=== PATIENT | female | born 1970 | race Caucasian/White ===

== ENCOUNTER 2024-02-10 20:26 | Outpatient (REF) | payer BC, SELFPAY ==
[2024-02-15 13:12] LABS: Age Gdln ACOG Testing Note (.); HPV Aptima Negative (Negative); IGP, Aptima HPV, rfx 16/18,45 Note (.)
== END 2024-02-10 20:27 | disposition home or self-care (01) ==
LOC: LAB 20:26
PROVIDERS: Visit Provider Obstetrics & Gynecology
DX: Z01.419 Encounter for gynecological examination (general) (routine) without abnormal findings (principal)
CPT/HCPCS: 87624; G0145

== ENCOUNTER 2024-02-23 07:56 | Outpatient (OUT) | payer BC, SELFPAY ==
--- NOTE | 2024-02-23 07:59 | XR_ITS ---
The [address] [address] Patient Name: BRIAN HOLLIS MRN: [id number] date: 1970 Sex: F Assigned Patient Location: RAD Current Patient Location: RAD Accession/Order Number: [id number] Exam Date: 02/23/2024 08:03 Report Date: 02/23/2024 10:14 At the request of: JELANI ATKINS Procedure: XR DEXA axial skeleton EXAMINATION: XR DEXA axial skeleton HISTORY: postmenopausal state Z78.0 COMPARISON: No relevant comparison available. TECHNIQUE: Dual-energy X-ray absorptiometry (DXA) was performed. FINDINGS: SPINE ANALYSIS: Average bone mineral density is 1.437 g/cm2. T-score (standard deviation relative to young adult mean): 2.0 . HIP ANALYSIS: Lowest bone mineral density is within the left femoral neck, 1.033 g/cm2. T-score (standard deviation relative to young adult mean): 0.0 . XR/XR DEXA axial skeleton IMPRESSION: [employer] Classification: Normal - Low Fracture Risk Electronically authenticated by: RICKIE OREILLY Date: 02/23/2024 10:14
== END 2024-02-23 07:57 | disposition home or self-care (01) ==
LOC: RAD 07:57
PROVIDERS: Visit Provider Obstetrics & Gynecology
DX: Z78.0 Asymptomatic menopausal state (principal)
CPT/HCPCS: 77080

== ENCOUNTER 2024-07-18 17:04 | Emergency (ER) | payer BC, SELFPAY ==
[2024-07-18] VITALS (11 sets, daily range): BP systolic 125–159; BP diastolic 73–99; PULSE 76–92; TEMP 37.1; O2SAT 97–100; BMI 32.3
--- NOTE | 2024-07-18 17:24 | ECG_ITS ---
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
--- NOTE | 2024-07-18 17:24 | CT_ITS ---
The [address] [address] Patient Name: BRIAN HOLLIS MRN: [id number] date: 1970 Sex: F Assigned Patient Location: ER Current Patient Location: ER Accession/Order Number: [id number] Exam Date: 07/18/2024 17:40 Report Date: 07/18/2024 18:43 At the request of: YON SHORT Procedure: CT head/brain wo con EXAMINATION: CT head/brain wo con, 07/18/2024 2:40 PM PDT HISTORY: vision changes COMPARISON: None. TECHNIQUE: CT scan of the head was performed without IV contrast. CT dose reduction technique was used, including Automated Exposure Control. FINDINGS: BRAIN PARENCHYMA/CSF SPACES: Ventricles are normal in size for age. There is no hemorrhage, mass effect or midline shift. Partially empty sella. PARANASAL SINUSES: Clear. SKULL BASE AND CALVARIUM: Normal. EXTRACRANIAL SOFT TISSUES: Normal. CT/CT head/brain wo con IMPRESSION: 1. No acute intracranial abnormality. 2. Partially empty sella. Electronically authenticated by: RICKIE VERGARA Date: 07/18/2024 18:43
--- NOTE | 2024-07-18 17:30 | ED_ITS ---
HPI HPI - General Adult General Chief complaint: Eye Problems Stated complaint: Headache Eye Time Seen by Provider: 07/18/24 17:16 Source: patient Mode of arrival: walk-in Limitations: no limitations History of Present Illness HPI narrative: Patient presents ED complaining of vision changes in the right eye. She states she was at work just finishing up when she felt like there was a spot missing from her vision out of the right eye. She said she also became dizzy when this happened. She does report a history of migraines although it has been about 5 or 10 years since she has had a migraine but she did have tunnel vision changes when she had a migraine in the past. No nausea no vomiting. No trauma. No syncope. Patient is not diabetic and she is not on a blood thinner. No trauma to the eye. She denies a headache at this time. Patient states she had an eye doctor appointment about 2 months ago and everything had checked out fine at that time. She reports that her vision is better than it was but she still has a small missing piece when she looks out of her right eye. No pain, no pain with movement of the eye. No other strokelike symptoms, no confusion no speech diffi culties no weakness. Related Data Home Medications ?Medication ?Instructions ?Recorded ?Confirmed No Known Home Medications 07/18/24 07/18/24 Allergies Allergy/AdvReac Type Severity Reaction Status Date / Time No Known Drug Allergies Allergy Verified 07/18/24 17:16 Opioid HPI Opioid Management Most Recent Opioid Data: Last Pain Scale 0 07/18/24 18:11 Last MAR Pain Assessment 07/18/24 18:11 Review of Systems ROS Status of ROS 10 or more systems reviewed and unremark able except as noted in history and below Exam Narrative Exam Narrative: Time Seen: [] Vital Signs: [Per nurse's notes.] General: [Alert] Skin: [Warm, dry, no rash.] Head: [Normocephalic, atraumatic.] Neck: [Supple, trachea midline.] Eye: [Pupils are equal, round and reactive to light, extraocular movements are intact, normal conjunctiva. Funduscopic exam normal bilaterally Ears, nose, mouth and throat: oral mucosa moist. Cardiovascular: [Regular rate and rhythm, no murmur.] Respiratory: [Lungs are clear to auscultation, respirations are non-labored, breath sounds are equal.] Chest wall: [No tenderness, no deformity.] Gastrointestinal: [Soft, nontender, non distended, normal bowel sounds.] MSK: 5 out of 5 muscle strength x 4 extremities no calf pain or edema Lymphatics: [No lymphadenopathy.] Psychiatric: [Cooperative, appropriate mood & affect.] Neurological: [Alert and oriented to person, place, time, and situation, no focal neurological deficit observed.] Constitutional Vital Signs, click to edit/add: Last Vital Signs Temp 98.8 F 07/18/24 17:17 Pulse 86 07/18/24 17:17 Resp 18 07/18/24 17:17 BP 159/96 H 07/18/24 17:17 Pulse Ox 100 07/18/24 17:17 O2 Del Method Room Air 07/18/24 17:17 Course Vital Signs Vital signs: Vital Signs Temperature 98.8 F 07/18/24 17:17 Pulse Rate 86 07/18/24 17:17 Respiratory Rate 18 07/18/24 17:17 Blood Pressure 159/96 H 07/18/24 17:17 Pulse Oximetry 100 07/18/24 17:17 Oxygen Delivery Method Room Air 07/18/24 17:17 Temperature 98.8 F 07/18/24 17:17 Pulse Rate 86 07/18/24 17:17 Respiratory Rate 18 07/18/24 17:17 Blood Pressure 159/96 H 07/18/24 17:17 Pulse Oximetry 100 07/18/24 17:17 Oxygen Delivery Method Room Air 07/18/24 17:17 Medical Decision Making MDM Narrative Medical decision making narrative: Patient's labs and CT scan are negative for acute findings. Her vision she said is still may be slightly blurry but much better. Possibly a migraine variant versus floaters. Please Follow-up with ophthalmology and neurology. Return to ED if worsening symptoms. Differential Diagnosis Differential Diagnosis: Migraine, floaters, hypertension, electrolyte abnormality Lab Data Lab results reviewed: Yes I reviewed the patient's lab results Labs: Lab Results 07/18/24 Range/Units 17:37 WBC 8.6 (4.0-11.0) 10^3/uL RBC 4.73 (4.20-5.40) 10^6/uL Hgb 14.0 (12.0-16.0) g/dL Hct 41.2 (36.0-48.0) % MCV 87.1 (81.0-99.0) fL MCH 29.6 (26.7-34.0) pg MCHC 34.0 (29.9-35.2) g/dL RDW 12.8 (11.0-15.0) % Plt Count 347 (150-450) 10^3/uL MPV 10.6 (9.5-13.5) fL Neut % (Auto) 57.9 (43.0-75.0) % Lymph % (Auto) 29.9 (20.5-60.0) % [place] % (Auto) 9.3 (1.7-12.0) % Eos % (Auto) 2.0 (0.9-7.0) % Baso % (Auto) 0.7 (0.2-2.0) % Neut # (Auto) 5.0 (1.4-6.5) 10^3/uL Lymph # (Auto) 2.6 (1.2-3.8) 10^3/uL [place] # (Auto) 0.8 (0.3-0.8) 10^3/uL Eos # (Auto) 0.2 (0.0-0.7) 10^3/uL Baso # (Auto) 0.1 (0.0-0.1) 10^3/uL Abs Immat Gran (auto) 0.02 (0.00-0.03) 10^3/uL Imm/Tot Granulo (auto) 0.2 (0.0-0.5) % Sodium 138 (136-145) mmol/L Potassium 3.6 (3.5-5.1) mmol/L Chloride 100 (98-107) mmol/L Carbon Dioxide 25.1 (21.0-32.0) mmol/L Anion Gap 16.5 BUN 13.0 (7.0-18.0) mg/dL Creatinine 0.85 (0.55-1.02) mg/dL Est GFR ( Amer) >60 (>=60) Est GFR (Non-Af Amer) >60 (>=60) BUN/Creatinine Ratio 15.3 Glucose 85 (74-106) mg/dL Calcium 9.1 (8.5-10.1) mg/dL Total Bilirubin 0.3 (0.2-1.0) mg/dL AST 45 H (15-37) U/L ALT 82 H (14-59) U/L Alkaline Phosphatase 64 (46-116) U/L Total Protein 7.6 (6.4-8.2) g/dL Albumin 4.2 (3.4-5.0) g/dL Globulin 3.4 g/dL Albumin/Globulin Ratio 1.[address] scan - head: Radiologist's impression: ITS Impressions Head CT 07/18/24 17:24 IMPRESSION: 1. No acute intracranial abnormality. 2. Partially empty sella. Electronically authenticated by: RICKIE VERGARA Date: 07/18/2024 18:43 ECG Data Attestation: I personally reviewed and interpreted this ECG as follows: Interpretation: EKG INTERPRETATION Time: []1732 Rate: []80 Rhythm: _ []Normal sinus rhythm ST segments: _ []No acute ST elevation or depression T waves: _ [] Ectopy: _ [] P wave/DE interval: _ [] QRS interval: _ [] QT interval: _ [] Comparison: _ [] Comparison EKG date: [] Performed by: [self] Discharge Plan Discharge Stand Alone Forms: Work/School Release, Portal Instructions Chief Complaint: Eye Problems Clinical Impression: Floaters in visual field Patient Disposition: Home, Self-Care Time of Disposition Decision: 18:47 Mode of Transportation: Private Vehicle Prescriptions / Home Meds: No Action No Known Home Medications Print Language: Vietnamese Instructions: Eye (Visual) Floaters (ED) Referrals: DEYVI CABELLO [Primary Care Provider] - 1 week Maximiliano Truong MD [Physician] - 1 week FABIEN MCGINNIS [Physician] - 1 week ARMEN FORD [Physician] - 1 week
[2024-07-18 17:45] LABS: Basophils Absolute Auto 0.1 10^3/uL (0.0-0.1); Basophils Percent Auto 0.7 % (0.2-2.0); Eosinophils Absolute Auto 0.2 10^3/uL (0.0-0.7); Hematocrit 41.2 % (36.0-48.0); Immature Granulocytes Abs Auto 0.02 10^3/uL (0.00-0.03); Immature Granulocytes Pct Auto 0.2 % (0.0-0.5); Lymphocytes Absolute Auto 2.6 10^3/uL (1.2-3.8); Lymphocytes Percent Auto 29.9 % (20.5-60.0); Mean Corpuscular Hemoglobin 29.6 pg (26.7-34.0); Mean Corpuscular Volume 87.1 fL (81.0-99.0); Mean Platelet Volume 10.6 fL (9.5-13.5); Monocytes Absolute Auto 0.8 10^3/uL (0.3-0.8); Monocytes Percent Auto 9.3 % (1.7-12.0); Neutrophils Percent Auto 57.9 % (43.0-75.0); Platelet Count 347 10^3/uL (150-450); Red Blood Count 4.73 10^6/uL (4.20-5.40); Red Cell Distribution Width 12.8 % (11.0-15.0); White Blood Count 8.6 10^3/uL (4.0-11.0)
[2024-07-18 17:59] LABS: Alanine Aminotransferase 82 U/L (14-59); Albumin Globulin Ratio 1.2; Albumin Level 4.2 g/dL (3.4-5.0); Alkaline Phosphatase 64 U/L (46-116); Anion Gap 16.5; Aspartate Amino Transferase 45 U/L (15-37); BUN Creatinine Ratio 15.3; Bilirubin Total 0.3 mg/dL (0.2-1.0); Calcium 9.1 mg/dL (8.5-10.1); Carbon Dioxide 25.1 mmol/L (21.0-32.0); Chloride 100 mmol/L (98-107); Estimated GFR (African America >60 (>=60); Estimated GFR (Non-African Ame >60 (>=60); Globulin 3.4 g/dL; Glucose 85 mg/dL (74-106); Potassium 3.6 mmol/L (3.5-5.1); Sodium 138 mmol/L (136-145); Total Protein 7.6 g/dL (6.4-8.2)
[2024-07-18] MEDS: 0.9 % SODIUM CHLORIDE 1,000 ML 1000 ML IV (18:10)
[2024-07-18] MEDS: METOCLOPRAMIDE HCL 10 MG/2 ML VIAL 5 MG IVP (18:11)
[2024-07-18] MEDS: KETOROLAC TROMETHAMINE 30 MG/ML VIAL 15 MG IVP (18:11)
[2024-07-18] MEDS: DIPHENHYDRAMINE HCL 50 MG/ML VIAL 25 MG IV (18:11)
== END 2024-07-18 19:10 | disposition home or self-care (01) ==
PROVIDERS: Emergency Provider Emergency Medicine; PCP Family Medicine
DX: H43.391 Other vitreous opacities, right eye (principal)
CPT/HCPCS: 36415; 70450; 80053; 85025; 93005; 96361; 96374; 96375; 99285; J1200; J1885; J2765

== ENCOUNTER 2024-12-05 16:40 | Outpatient (OUT) | payer BC, SELFPAY ==
[2024-12-05 16:55] LABS: Bilirubin Urine NEGATIVE (NEGATIVE); Blood Urine NEGATIVE (NEGATIVE); Clarity Urine CLEAR (CLEAR); Color Urine YELLOW (YELLOW); Glucose Urine UA NEGATIVE (NEGATIVE); Ketones Urine NEGATIVE (NEGATIVE); Leukocyte Esterase Urine NEGATIVE (NEGATIVE); Nitrite Urine NEGATIVE (NEGATIVE); Protein Urine NEGATIVE (NEG/TRACE); Specific Gravity Urine 1.025 (1.005-1.025); Urobilinogen Urine 0.2 EU/dL (0.2-1.0)
--- OUTSIDE RECORDS SUMMARY | 2024-12-05 16:57 | XMS_ITS | CCD ---
Author Organization [facility] Care Team Providers Care Internal Communications Intern Name Role Phone Deyvi Cabello Primary Care Provider MD Roney Mcmanus Attending Provider [phone] DO Deyvi Cabello Primary Care Provider Self, Referral Attending Provider Unavailable WILBERT ., DR PALOMARES Admitting Unavailable WILBERT ., DR PALOMARES Consulting Unavailable WILBERT ., DR PALOMARES Attending Unavailable WILBERT ., DR PALOMARES Admitting Unavailable WILBERT ., DR PALOMARES Consulting Unavailable WILBERT ., DR PALOMARES Attending Unavailable WILBERT ., DR PALOMARES Admitting Unavailable WILBERT ., DR PALOMARES Consulting Unavailable WILBERT ., DR PALOMARES Attending Unavailable ZIEBER, DR RICKIE Burnham Consulting Unavailable WILBERT ., DR PALOMARES Admitting Unavailable WILBERT ., DR PALOMARES Consulting Unavailable WILBERT ., DR PALOMARES Attending Unavailable HELENA MARC Consulting Unavailable FERCHO II, FILI Consulting Unavailable MARIBELL DUARTE Consulting Unavailable MD Roney Mcmanus Attending Provider DO Deyvi Cabello Primary Care Provider MD Laci Larsen Attending Provider JELANI JAIN Attending Unavailable DO Deyvi Cabello Primary Care Provider Jelani Jain Attending Provider Jelani Jain Referring Provider [phone] DO Deyvi Cabello Primary Care Provider MD Laci Larsen Attending Provider [phone] Laci Larsen Admitting Unavailable Laci Larsen Attending Unavailable Deyvi Cabello Primary Care Unavailable Laci Larsen Admitting Unavailable Laci Larsen Attending Unavailable Deyvi Cabello Primary Care Unavailable Deyvi Cabello Primary Care Unavailable Jelani Jain Admitting Unavailable Jelani Jain Attending Unavailable Jelani Jain Referring Unavailable Laci Larsen Admitting Unavailable Laci Larsen Attending Unavailable Deyvi Cabello Primary Care Unavailable Deyvi Cabello DO Primary Care Provider FILI SANDERS Referring Unavailable DEYVI CABELLO Primary Care Unavailable DEYVI CABELLO Primary Care Unavailable FILI SANDERS Referring Unavailable Allergies Allergy Classification Reported Allergen(s) Allergy Type Date of Onset Reaction(s) Facility (1 source) Dextroamphetamine Drug Allergy [facility] (1 source) rosuvastatin Drug Allergy [facility] Medications Current Medications Medication Drug Class(es) Dates Sig (Normalized) Sig (Original) acetaminophen 325 mg oral tablet (8 sources) Start: 05-20-2021 acetaminophen (TYLENOL) tablet 650 mg take 2 tablets by [facility] every six hours as needed for pain acetaminophen (TYLENOL) 325 MG tablet Ta ke 650 mg by mouth every 6 hours as needed for Pain Active acetaminophen 325 mg / HYDROcodone bitartrate 5 mg oral tablet (5 sources) Opioid Agonist Start: 05-20-2021 End: 05-20-2021 HYDROcodone-acetaminophen (NORCO) 5-325 MG per tablet 1 tablet Start: 02-26-2018 End: 03-02-2019 Hydrocodone-Acetaminophen (N orco) 5-325 mg tablet Discontinued 1 TAB PO every 6 to 8 hours February 26, 2018 March 02, 2019 1:29pm calcium chloride 0.0014 meq/ml / potassium chloride 0.004 meq/ml / sodium chloride 0.103 meq/ml / sodium lactate 0.028 meq/ml injectable solution (2 sources) Start: 05-20-2021 lactated ringe rs infusion Cholecalciferol (2 sources) Vitamin D Cholecalciferol (VITAMIN D-3 PO) Take by mouth daily Active Cholecalciferol (VITAMIN D-3 PO) Take by mouth daily 0 Active 2 ml fentaNYL 0.05 mg/ml injection (1 source) Opioid Agonist Start: 05-20-2021 fentaNYL (SUBLIMAZE) injection 50 mcg ferrous sulfate 325 mg oral tablet (4 sources) Start: 03-02-2019 take 325 mg by mouth once daily Ferrous Sulfate Active 325 MG PO Daily March 02, 2019 12:00am 2 ml metoclopramide 5 mg/ml prefilled syringe (1 source) Dopamine-2 Receptor Antagonist Start: 05-20-2021 End: 05-20-2021 metoclopramide (REGLAN) injection 10 mg Multiple Vitamins-Minerals (VITAMIN D3 COMPLETE PO) (3 sources) Multiple Vitamins-Minerals (VITAMIN D3 COMPLETE PO) Take by mouth daily 0 Active Multiple Vitamin s-Minerals (VITAMIN D3 COMPLETE PO) Take by mouth daily 0 Suspended Probiotic Product (PROBIOTIC -10 PO) (2 sources) Probiotic Produc t (PROBIOTIC-10 PO) Take by mouth daily Active Probiotic Produc t (PROBIOTIC-10 PO) Take by mouth daily 0 Active 1 ml promethazine hydrochloride 25 mg/ml injection (1 source) Phenothiazine Start: 05-20-2021 End: 05-20-2021 promethazine (PHENERGAN) injection 6.25 mg 3 ml sodium chloride 9 mg/ml injection (3 sources) Start: 05-20-2021 sodium chlorid e flush 0.9 % injection 5-40 mL Start: 05-20-2021 0.9 % sodium c hloride infusion Start: 05-20-2021 sodium chlorid e flush 0.9 % injection 5-40 mL tamsulosin hydrochloride 0.4 mg oral capsule (5 sources) alpha-Adrenergic Sima Start: 04-10-2021 tamsulosin (FLOMAX) 0.4 MG capsule vitamin e 180 mg oral capsule (2 sources) take 1 capsule by mouth once daily vitamin E 400 UNIT capsule Take 400 Units by mouth daily Active take 1 capsule by mouth once michael ly vitamin E 400 UNIT capsule Take 400 Units by mouth daily 0 Active Completed/Discontinued Medications Medication Drug Class(es) Dates Sig (Normalized) Sig (Original) 200 ml ciprofloxacin 2 mg/ml injection (1 source) Quinolone Antimicrobial Start: 05-20-2021 End: 05-20-2021 ciprofloxacin (CIPRO) IVPB 400 mg dimenhyDRINATE 50 mg oral tablet (1 source) Start: 05-20-2021 End: 05-20-2021 dimenhyDRINATE (DRAMAMINE) tablet 50 mg ibuprofen 800 mg oral tablet (9 sources) Nonsteroidal Anti-inflammatory Drug Start: 02-26-2018 End: 03-02-2019 Ibuprofen Discontinued 800 MG PO every 6 to 8 hours 30 February 26, 2018 12:00am March 02, 2019 1:29pm take 1 tablet by bc th every six hours as needed for pain ibuprofen (ADVIL;MOTRIN) 200 MG tablet T mono 200 mg by mouth every 6 hours as needed for Pain 0 Active iopamidol (ISOVUE-370) 76 % injection 120 mL (1 source) Start: 05-01-2021 End: 05-01-2021 iopamidol (ISOVUE-370) 76 % injection 120 mL rosuvastatin calcium 10 mg oral tablet (4 sources) HMG-CoA Reductase Inhibitor Start: 02-26-2018 End: 03-02-2019 take 10 mg by mouth once daily Rosuvastatin Discontinued 10 MG PO Daily February 26, 2018 12:00am March 02, 2019 1:29pm Problems Active Problems Problem Classification Problem Date Documented Da te Episodic/Chronic Calculus of urinary tract (13 sources) Kidney stone; Translations: [Calculus of kidney] Onset: 04-25-2021 04-25-2021 Episodic Disorders of lipid metabolism (1 source) Hyperlipidemia, unspecified; Translations: [HYPERLIPIDEMIA UNSPECIFIED] Onset: 01-21-2023 Chronic Fracture of lower limb (4 sources) Closed fracture of phalanx of foot; Translations: [Displaced unspecified fracture of left lesser toe(s), initial encounter for closed fracture] 02-26-2018 Episodic Gastrointestinal hemorrhage (4 sources) Rectal hemorrhage; Translations: [Hemorrhage of anus and rectum] 03-07-2019 Episodic Menstrual disorders (2 sources) Excessive and frequent menstruation with regular cycle; Translations: [Dysmenorrhea, unspecified] Onset: 01-21-2023 Chronic Other female genital disorders (1 source) Abnormal uterine and vaginal bleeding, unspecified; Translations: [ABNORMAL UTERINE VAGINAL BLEED UNS] Onset: 01-21-2023 Chronic Other hematologic conditions (1 source) Elevated erythrocyte sedimentation rate; Translations: [Elevated erythrocyte sedimentation rate] Onset: 08-24-2024 Episodic Other screening for suspected conditions (not mental disorders or infectious disease) (5 sources) Abnormal findings on diagnostic imaging of other specified body structures; Translations: [ABNORML FIND DX IMG OTH BODY STRUC] Onset: 12-25-2022 Chronic Unclassified (1 source) Pain in right hand; Translations: [Pain in right hand] Onset: 11-05-2023 Past or Other Problems Problem Classification Problem Date Documented Da te Episodic/Chronic Abdominal pain (1 source) Pelvic and perineal pain; Translations: [PELVIC AND PERINEAL PAIN] Onset: 01-21-2023 Episodic Genitourinary symptoms and ill-defined conditions (9 sources) Farhan hematuria; Translations: [Gross hematuria] Onset: 04-25-2021 Episodic Other circulatory disease (1 source) Bleeding; Translations: [Hemorrhage, not elsewhere classified] Onset: 12-06-2014 12-06-2014 Episodic Other female genital disorders (5 sources) Hypertrophy of uterus; Translations: [HYPERTROPHY OF UTERUS] Onset: 2022 Episodic Other non-traumatic joint disorders (1 source) Pain in unspecified joint; Translations: [Pain in unspecified joint] Onset: 10-28-2023 Episodic Other screening for suspected conditions (not mental disorders or infectious disease) (1 source) Encounter for screening mammogram for malignant neoplasm of breast; Translations: [Encounter for screening mammogram for malignant neoplasm of breast] Onset: 04-07-2024 Episodic Results Test Name Value Interpretation Reference Range Facility XR ABDOMEN (KUB) (SINGLE AP VIEW)on 09-04-2024 XR ABDOMEN (KUB) (SINGLE AP VIEW) EXAMINATION: ONE SUPINE XRAY VIEW(S) OF THE ABDOMEN 08/31/2024 2:45 pm COMPARISON: 08/20/2023 HISTORY: ORDERING SYSTEM PROVIDED HISTORY: Renal stone FINDINGS: Bowel gas pattern and bony structures are unremarkable. There is a stable 6 mm left upper quadrant calcification consistent with a renal calculus. IMPRESSION: Stable left nephrolithiasis. Interpreted by: Taz Macias MD Signed by: Taz Macias MD 09/04/24 Final result Normal [facility] C reactive protein [Mass/vol ume] in Serum or PlasmaOrdered By: Laci Larsen on 08-24-2024 CRP [Mass/Vol] 0.7 mg/dL High 0.0-0.5 [facility] C-Reactive Proteinon 024 C-Reactive Protein 0.7 mg/dL High 0.0-0.5 [facility] Comment on above: Result Comment: PERF ORMED BY: [place] [address] PATHOLOGIST SNAP SHEARER REID HOGUE M.D. Performed By: #### A NA, C4, CH50, C3 #### [facility] , #### CMP, CRP, ESR, CBC, ADDONUAPLUS, PTH, CK #### [facility] [address] [place] [address] Erythrocyte Sedimentation Ra juan carlos 08-24-2024 ESR (Bld) [Velocity] 12 mm/h Normal 0-29 [facility] Comment on above: Result Comment: PERF ORMED BY: [place] [address] PATHOLOGIST SNAP SHEARER REID HOGUE M.D. Performed By: #### A NA, C4, CH50, C3 #### [facility] , #### CMP, CRP, ESR, CBC, ADDONUAPLUS, PTH, CK #### [address] Erythrocyte sedimentation ra te by Photometric methodOrdered By: Laci Larsen on 08-24-2024 ESR Photometric method (Bld) [Velocity] 12 mm/hr 0-29 [facility] MM screening mammo BI w/CADo n 04-07-2024 MM screening mammo BI w/CAD [facility] [place] [address] Mammography Report Signed Patient: Lilly Morocho MR#: [id number] 46 : 1970 Acct:[id number] Age/Sex: 53 / F ADM Date: 04/07/24 Loc: [place] Room: Type: [facility] Attending Dr: Jelani Jain Copies to: Jelani Cabello DO Ordering Provider: Jelani Jain Date of Service: 04/07/24 MM/MM screening mammo BI w/CAD: SCREENING CLINICAL DATA: Screening for malignancy. SCREENING MAMMOGRAM - FULL FIELD DIGITAL WITH TOMOSYNTHESIS AND CAD COMPARISON:Mammogram s dating back to 2020 Tomosynthesis craniocaudal and mediolateral oblique views of both breasts were obtained using low- dose digital technique. This examination was reviewed with the aid of CAD. FINDINGS: The breast tissue is composed of scattered fibroglandular densities. There are no dominant masses, typically malignant calcifications or architectural distortion. There has been no significant interval change. MM/MM screening mammo BI w/CAD IMPRESSION: NO MAMMOGRAPHIC EVIDENCE OF MALIGNANCY. ROUTINE FOLLOW-UP IS RECOMMENDED IN ONE YEAR. RESULT CODE: 1 Negative DENSITY CODE: 2 (approximately 25-50% glandular) FOLLOW UP: 1YR The false-negative rate of mammography is approximately 10-percent. Management of a palpable abnormality must be based on clinical grounds. Patient was entered into a reminder system with a target due date for the next mammogram. Impression dictated by: Javi Sandhu Jr., D.O.04/07/2024 2:50 PM Dictation Location: [facility] Transcribed By: [facility] 04/07/24 1450 Dictated By: Javi Sandhu Jr, DO 04/07/24 1449 Signed By: 04/07/24 1450 Normal [facility] XR knee BI 2Von 11-05-2023 XR knee BI 2V [facility] [place] [address] XRay Report Signed Patient: Lilly Morocho MR#: [id number] 47 : 1970 Acct:[id number] Age/Sex: 53 / F ADM Date: 11/05/23 Loc: XD Room: Type: [facility] Attending Dr: Laci Larsen MD Copies to: Laci Larsen MD Ordering Provider: Laci Larsen MD Date of Service: 11/05/23 XR/XR hand BI 2V: HAND PAIN ([id number]) XR/XR knee BI 2V: KNEE PAIN ([id number]) XR/XR ankle RT 2V: ANKLE PAIN BILATERAL HAND - 2 views each bilateral knee series 2 views each, right ankle 2 views REASON FOR EXAM: Bilateral hand pain, generalized right ankle pain, bilateral knee pain. COMPARISON: None FINDINGS: Right hand: No focal soft tissue abnormality or acute bony process. Carpus demonstrates minimal degenerative change. MCP joints appear unremarkable. IP joints appear unremarkable. Left hand: No focal soft tissue abnormality or acute bony process. Carpus, MCP joints and IP joints appear unremarkable. No bony erosions. Right ankle: No focal soft tissue abnormality. Ankle mortise appears intact without acute bony process. No significant degenerative change. Right knee: No knee joint effusion or acute bony process. Minimal degenerative change. Joint spaces appear maintained. Left knee: No knee joint effusion. No acute bony process. Minimal degenerative change. No significant joint space narrowing. XR/XR hand BI 2V IMPRESSION: MINIMAL DEGENERATIVE CHANGES OF THE RIGHT HAND WITHOUT ACUTE BONY PROCESS. LEFT HAND APPEARS UNREMARKABLE. RIGHT ANKLE DEMONSTRATES NO ACUTE BONY PROCESS OR SIGNIFICANT DEGENERATIVE CHANGE. THE KNEES DEMONSTRATE MINIMAL DEGENERATIVE CHANGES OF THE BONY PROCESS. Impression dictated by: Javi Sandhu Jr., EjORosa11/05/2023 2:42 PM Dictation Location: [place] [address] Transcribed By: [facility] 11/05/23 1442 Dictated By: Javi Sandhu Jr, DO 11/05/23 1439 Signed By: 11/05/23 1442 Normal [facility] SHARONA Antinuclear Antibodieson 10-28-2023 Antinuclear Abs, IFA Negative Normal . [facility] Comment on above: Result Comment: Nega tive <1:80 Borderline 1:80 Positive >1:80 ICAP nomenclature: AC-0 For more information about Hep-2 cell patterns use ANApatterns.org, the official website for the International Consensus on Antinuclear Antibody (SHARONA) Patterns (ICAP). Performed at: - [facility] [address] [id number] Engineer Second Assistant: Hudson Bella PhD, Phone: [phone] Performed By: #### A NA, C4, CH50, C3 #### [facility] , #### CMP, CRP, ESR, CBC, ADDONUAPLUS, PTH, CK #### [address] Alanine aminotransferase [En zymatic activity/volume] in Serum or PlasmaOrdered By: Laci Larsen on 10-28-2023 ALT [Catalytic activity/Vol] 23 U/L Normal 7-52 [facility] Comment on above: Performed By: #### A NA, C4, CH50, C3 #### [facility] , #### CMP, CRP, ESR, CBC, ADDONUAPLUS, PTH, CK #### [facility] [address] [place] [address] [place] Albumin [Mass/volume] in Ser um or Plasma by Bromocresol green (BCG) dye binding methoOrdered By: Laci Larsne on 10-28-2023 Albumin BCG dye [Mass/Vol] 4.8 g/dL 3.5-5.7 [facility] Alkaline phosphatase [Enzyma tic activity/volume] in Serum or PlasmaOrdered By: Laci Larsen on 10-28-2023 ALP [Catalytic activity/Vol] 63 U/L Normal 34-104 [facility] Comment on above: Performed By: #### A NA, C4, CH50, C3 #### [facility] , #### CMP, CRP, ESR, CBC, ADDONUAPLUS, PTH, CK #### [facility] [address] Aspartate aminotransferase [ Enzymatic activity/volume] in Serum or PlasmaOrdered By: Laci Larsen on 10-28-2023 AST [Catalytic activity/Vol] 17 U/L Normal 13-39 [facility] Comment on above: Performed By: #### A NA, C4, CH50, C3 #### [facility] , #### CMP, CRP, ESR, CBC, ADDONUAPLUS, PTH, CK #### [facility] [address] [place] [address] [place] Automated basophil %Ordered By: Laci Larsen on 10-28-2023 Basophils/100 WBC (Bld) 0.9 % Normal . [facility] Comment on above: Performed By: #### A NA, C4, CH50, C3 #### [facility] , #### CMP, CRP, ESR, CBC, ADDONUAPLUS, PTH, CK #### [address] Automated basophil countOrde red By: Laci Larsen on 10-28-2023 Basophils (Bld) [#/Vol] 0.1 10*3/uL Normal 0.0-0.2 [facility] Comment on above: Performed By: #### A NA, C4, CH50, C3 #### [facility] , #### CMP, CRP, ESR, CBC, ADDONUAPLUS, PTH, CK #### [address] Automated blood monocyte cou ntOrdered By: Laci Larsen on 10-28-2023 Monocytes (Bld) [#/Vol] 0.5 10*3/uL Normal 0.0-0.8 [facility] Comment on above: Performed By: #### A NA, C4, CH50, C3 #### [facility] , #### CMP, CRP, ESR, CBC, ADDONUAPLUS, PTH, CK #### [address] Automated eosinophil %Ordere d By: Laci Larsen on 10-28-2023 Eosinophils/100 WBC (Bld) 2.5 % Normal . [facility] Comment on above: Performed By: #### A NA, C4, CH50, C3 #### [facility] , #### CMP, CRP, ESR, CBC, ADDONUAPLUS, PTH, CK #### [address] Automated eosinophil countOr dered By: Laci Larsen on 10-28-2023 Eosinophils (Bld) [#/Vol] 0.2 10*3/uL Normal 0.0-0.45 [facility] Comment on above: Performed By: #### A NA, C4, CH50, C3 #### [facility] , #### CMP, CRP, ESR, CBC, ADDONUAPLUS, PTH, CK #### [address] Automated erythrocytes count in urine sediment (number/area)Ordered By: Laci Larsen on 10-28-2023 RBC Auto (Urine sed) [#/Area] 1-2 [HPF] 0-4 [facility] Automated leukocytes count i n urine sediment (number/area)Ordered By: Laci Larsen on 10-28-2023 WBC Auto (Urine sed) [#/Area] 0-1 [HPF] 0-4 [facility] Automated monocyte %Ordered By: Lcai Larsen on 10-28-2023 Monocytes/100 WBC (Bld) 6.6 % Normal . [facility] Comment on above: Performed By: #### A NA, C4, CH50, C3 #### [facility] , #### CMP, CRP, ESR, CBC, ADDONUAPLUS, PTH, CK #### [address] Automated neutrophil %Ordere d By: Laci Larsen on 10-28-2023 Neutrophils/100 WBC (Bld) 58.6 % Normal . [facility] Comment on above: Performed By: #### A NA, C4, CH50, C3 #### [facility] , #### CMP, CRP, ESR, CBC, ADDONUAPLUS, PTH, CK #### [address] Automated urine color determ inationOrdered By: Laci Larsen on 10-28-2023 Color (U) Yellow Normal Yellow [facility] Comment on above: Order Comment: Name Collection Type:: Clean-Voided Midstream Performed By: #### A NA, C4, CH50, C3 #### [facility] , #### CMP, CRP, ESR, CBC, ADDONUAPLUS, PTH, CK #### [address] Bilirubin Test strip Ql (U)O rdered By: Laci Larsen on 10-28-2023 Bilirubin Ql (U) Negative Negative [facility] Bilirubin.total [Mass/volume ] in Serum or PlasmaOrdered By: Laci Larsen on 10-28-2023 Bilirubin [Mass/Vol] 0.4 mg/dL Normal 0.3-1.0 [facility] Comment on above: Performed By: #### A NA, C4, CH50, C3 #### [facility] , #### CMP, CRP, ESR, CBC, ADDONUAPLUS, PTH, CK #### [facility] [address] C reactive protein [Mass/vol ume] in Serum or PlasmaOrdered By: Laci Larsen on 10-28-2023 CRP [Mass/Vol] 1.3 mg/dL 0.0-0.5 [facility] C-Reactive Proteinon 023 C-Reactive Protein 1.3 mg/dL High 0.0-0.5 [facility] Comment on above: Result Comment: PERF ORMED BY: [place] [address] PATHOLOGIST SNAP SHEARER REID HOGUE M.D. Performed By: #### A NA, C4, CH50, C3 #### [facility] , #### CMP, CRP, ESR, CBC, ADDONUAPLUS, PTH, CK #### [address] Calcium [Mass/volume] in Ser um or PlasmaOrdered By: Laci Larsen on 10-28-2023 Calcium [Mass/Vol] 9.8 mg/dL Normal 8.6-10.3 [facility] Comment on above: Performed By: #### A NA, C4, CH50, C3 #### [facility] , #### CMP, CRP, ESR, CBC, ADDONUAPLUS, PTH, CK #### [address] Carbon dioxide, total [Moles /volume] in Serum or PlasmaOrdered By: Laci Larsen on 10-28-2023 CO2 [Moles/Vol] 27.1 mmol/L Normal 21.0-31.0 [facility] Comment on above: Performed By: #### A NA, C4, CH50, C3 #### [facility] , #### CMP, CRP, ESR, CBC, ADDONUAPLUS, PTH, CK #### [facility] [address] [place] [address] Chloride [Moles/volume] in S miller or PlasmaOrdered By: Laci Larsen on 10-28-2023 Chloride [Moles/Vol] 104 mmol/L Normal 98-107 [facility] Comment on above: Performed By: #### A NA, C4, CH50, C3 #### [facility] , #### CMP, CRP, ESR, CBC, ADDONUAPLUS, PTH, CK #### [facility] [address] [place] [address] Complement C3on 10-28-2023 Complement C3 169 mg/dL High 82-167 [facility] Comment on above: Result Comment: Perf ormed at: - [facility] [place] [id number] Engineer Second Assistant: Hudson Bella PhD, Phone: [phone] Performed By: #### A NA, C4, CH50, C3 #### [facility] , #### CMP, CRP, ESR, CBC, ADDONUAPLUS, PTH, CK #### [address] Complement C4on 10-28-2023 Complement C4 27 mg/dL Normal 12-38 [facility] Comment on above: Result Comment: PERF ORMED BY: [place] [address] PATHOLOGIST SNAP SHEARER REID HOGUE M.D. Performed By: #### A NA, C4, CH50, C3 #### [facility] , #### CMP, CRP, ESR, CBC, ADDONUAPLUS, PTH, CK #### [address] Complement Total (CH50)on Complement Total (CH50) >60 Normal >41 [facility] Comment on above: Result Comment: Age Male Female 1 - 30 days Not Estab. Not Estab. 31 days - 6 months >32 >20 7 months - 17 years >39 >39 >17 years >41 >41 NOTE: The adult ( >17 years ) reference interval range is used to flag abnormals on this report. If the patient is 17 years old or younger, use the table above to determine out of range values. Performed at: - [facility] [address] [id number] Engineer Second Assistant: Hudson Bella PhD, Phone: [phone] PERFORMED BY: [place] [address] PATHOLOGIST SNAP SHEARER REID HOGUE M.D. Performed By: #### A NA, C4, CH50, C3 #### [facility] , #### CMP, CRP, ESR, CBC, ADDONUAPLUS, PTH, CK #### [address] Complete Blood Count Auto Di ffon 10-28-2023 Mean Corpuscular HGB Conc 33.5 g/dL Normal 32.0-35.0 [facility] Comment on above: Performed By: #### A NA, C4, CH50, C3 #### [facility] , #### CMP, CRP, ESR, CBC, ADDONUAPLUS, PTH, CK #### [address] NRBC% 0.1 /100{WBC} Normal 0-0.5 [facility] Comment on above: Performed By: #### A NA, C4, CH50, C3 #### [facility] , #### CMP, CRP, ESR, CBC, ADDONUAPLUS, PTH, CK #### [address] Comprehensive Metabolic Pane gera 10-28-2023 Albumin [Mass/Vol] 4.8 g/dL Normal 3.5-5.7 [facility] Comment on above: Performed By: #### A NA, C4, CH50, C3 #### [facility] , #### CMP, CRP, ESR, CBC, ADDONUAPLUS, PTH, CK #### [address] GFR/1.73 sq M.predicted MDRD (S/P/Bld) [Vol rate/Area] mL/min/{1.73_m2} Normal [facility] Comment on above: Performed By: #### A NA, C4, CH50, C3 #### [facility] , #### CMP, CRP, ESR, CBC, ADDONUAPLUS, PTH, CK #### [address] Creatine kinase [Enzymatic a ctivity/volume] in Serum or PlasmaOrdered By: Laci Larsen on 10-28-2023 CK [Catalytic activity/Vol] 46 U/L Normal 30-223 [facility] Comment on above: Result Comment: PERF ORMED BY: [place] [address] PATHOLOGIST SNAP SHEARER REID HOGUE M.D. Performed By: #### A NA, C4, CH50, C3 #### [facility] , #### CMP, CRP, ESR, CBC, ADDONUAPLUS, PTH, CK #### [address] Creatinine [Mass/volume] in Serum or PlasmaOrdered By: Laci Larsen on 10-28-2023 Creatinine [Mass/Vol] 0.98 mg/dL Normal 0.60-1.20 [facility] Comment on above: Performed By: #### A NA, C4, CH50, C3 #### [facility] , #### CMP, CRP, ESR, CBC, ADDONUAPLUS, PTH, CK #### [place] [address] [place] Dipstick and Microscopicon 1 12-29-2022 Appearance (U) Clear Normal Clear [facility] Comment on above: Order Comment: Name Collection Type:: Clean-Voided Midstream Performed By: #### A NA, C4, CH50, C3 #### [facility] , #### CMP, CRP, ESR, CBC, ADDONUAPLUS, PTH, CK #### [address] Bacteria,Urine None Seen Normal None Seen [facility] Comment on above: Order Comment: Name Collection Type:: Clean-Voided Midstream Performed By: #### A NA, C4, CH50, C3 #### [facility] , #### CMP, CRP, ESR, CBC, ADDONUAPLUS, PTH, CK #### [address] Bilirubin,Urine Negative Normal Negative [facility] Comment on above: Order Comment: Name Collection Type:: Clean-Voided Midstream Performed By: #### A NA, C4, CH50, C3 #### [facility] , #### CMP, CRP, ESR, CBC, ADDONUAPLUS, PTH, CK #### [address] Glucose Ql (U) Normal Normal Normal [facility] Comment on above: Order Comment: Name Collection Type:: Clean-Voided Midstream Performed By: #### A NA, C4, CH50, C3 #### [facility] , #### CMP, CRP, ESR, CBC, ADDONUAPLUS, PTH, CK #### [address] Hyaline Casts,Urine 0-8 Normal 0-8 [facility] Comment on above: Order Comment: Name Collection Type:: Clean-Voided Midstream Result Comment: PERF ORMED BY: [place] [address] PATHOLOGIST SNAP SHEARER REID HOGUE M.D. Performed By: #### A NA, C4, CH50, C3 #### [facility] , #### CMP, CRP, ESR, CBC, ADDONUAPLUS, PTH, CK #### [address] Ketones Ql (U) Negative Normal Negative [facility] Comment on above: Order Comment: Name Collection Type:: Clean-Voided Midstream Performed By: #### A NA, C4, CH50, C3 #### [facility] , #### CMP, CRP, ESR, CBC, ADDONUAPLUS, PTH, CK #### [address] Leukocyte esterase Test strip Ql (U) Negative Normal Negative [facility] Comment on above: Order Comment: Name Collection Type:: Clean-Voided Midstream Performed By: #### A NA, C4, CH50, C3 #### [facility] , #### CMP, CRP, ESR, CBC, ADDONUAPLUS, PTH, CK #### [address] Nitrite,Urine Negative Normal Negative [facility] Comment on above: Order Comment: Name Collection Type:: Clean-Voided Midstream Performed By: #### A NA, C4, CH50, C3 #### [facility] , #### CMP, CRP, ESR, CBC, ADDONUAPLUS, PTH, CK #### [address] Occult Blood,Urine Negative Normal Negative [facility] Comment on above: Order Comment: Name Collection Type:: Clean-Voided Midstream Performed By: #### A NA, C4, CH50, C3 #### [facility] , #### CMP, CRP, ESR, CBC, ADDONUAPLUS, PTH, CK #### [address] Protein,Urine Negative Normal Negative [facility] Comment on above: Order Comment: Name Collection Type:: Clean-Voided Midstream Performed By: #### A NA, C4, CH50, C3 #### [facility] , #### CMP, CRP, ESR, CBC, ADDONUAPLUS, PTH, CK #### [address] RBC,Urine 1-2 Normal 0-4 [facility] Comment on above: Order Comment: Name Collection Type:: Clean-Voided Midstream Performed By: #### A NA, C4, CH50, C3 #### [facility] , #### CMP, CRP, ESR, CBC, ADDONUAPLUS, PTH, CK #### [address] Specificy [place],Urine 1.023 Normal 1.001-1.030 [facility] Comment on above: Order Comment: Name Collection Type:: Clean-Voided Midstream Performed By: #### A NA, C4, CH50, C3 #### [facility] , #### CMP, CRP, ESR, CBC, ADDONUAPLUS, PTH, CK #### [address] Squamous Epithelial Cell,Urine 1-2 Normal 0-2 [facility] Comment on above: Order Comment: Name Collection Type:: Clean-Voided Midstream Performed By: #### A NA, C4, CH50, C3 #### [facility] , #### CMP, CRP, ESR, CBC, ADDONUAPLUS, PTH, CK #### [address] Urobilinogen,Urine Normal Normal Normal [facility] Comment on above: Order Comment: Name Collection Type:: Clean-Voided Midstream Performed By: #### A NA, C4, CH50, C3 #### [facility] , #### CMP, CRP, ESR, CBC, ADDONUAPLUS, PTH, CK #### [place] [address] [place] WBC LM.HPF (Urine sed) [#/Area] 0 /[HPF] Normal 0-4 [facility] Comment on above: Order Comment: Name Collection Type:: Clean-Voided Midstream Performed By: #### A NA, C4, CH50, C3 #### [facility] , #### CMP, CRP, ESR, CBC, ADDONUAPLUS, PTH, CK #### [address] Erythrocyte Sedimentation Ra juan carlos 10-28-2023 ESR (Bld) [Velocity] 36 mm/h High 0-29 [facility] Comment on above: Result Comment: PERF ORMED BY: [place] [address] PATHOLOGIST SNAP SHEARER REID HOGUE M.D. Performed By: #### A NA, C4, CH50, C3 #### [facility] , #### CMP, CRP, ESR, CBC, ADDONUAPLUS, PTH, CK #### [address] Erythrocyte distribution wid th [Ratio] by Automated countOrdered By: Laci Larsen on 10-28-2023 Erythrocyte distribution width (RBC) [Ratio] 13.9 % Normal 11.9-15.3 [facility] Comment on above: Performed By: #### A NA, C4, CH50, C3 #### [facility] , #### CMP, CRP, ESR, CBC, ADDONUAPLUS, PTH, CK #### [address] Erythrocyte sedimentation ra te by Photometric methodOrdered By: Laci Larsen on 10-28-2023 ESR Photometric method (Bld) [Velocity] 36 mm/hr 0-29 [facility] Erythrocytes [#/volume] in B lood by Automated countOrdered By: Laci Larsen on 10-28-2023 RBC (Bld) [#/Vol] 4.63 10*6/uL Normal 3.60-5.00 [facility] Comment on above: Performed By: #### A NA, C4, CH50, C3 #### [facility] , #### CMP, CRP, ESR, CBC, ADDONUAPLUS, PTH, CK #### [facility] [address] [place] [address] [place] Glucose [Mass/volume] in Ser um or PlasmaOrdered By: Laci Larsen on 10-28-2023 Glucose [Mass/Vol] 84 mg/dL Normal 70-100 [facility] Comment on above: ADA recommended refe rence rangeRandom Glucose Reference Range is dependent on time and content of last meal. Glucose of more than 200 mg/dL in a nonstressed, ambulatory subject supports the diagnosis of Diabetes Mellitus. Result Comment: [place] om Glucose Reference Range is dependent on time and content of last meal. Glucose of more than 200 mg/dL in a nonstressed, ambulatory subject supports the diagnosis of Diabetes Mellitus. ADA recommended reference range Performed By: #### A NA, C4, CH50, C3 #### [facility] , #### CMP, CRP, ESR, CBC, ADDONUAPLUS, PTH, CK #### [facility] [address] Hematocrit [Volume Fraction] of Blood by Automated countOrdered By: Laci Larsen on 10-28-2023 Hematocrit (Bld) [Volume fraction] 40.1 % Normal 34.0-46.4 [facility] Comment on above: Performed By: #### A NA, C4, CH50, C3 #### [facility] , #### CMP, CRP, ESR, CBC, ADDONUAPLUS, PTH, CK #### [facility] [address] [place] [id number] [place] Hemoglobin [Mass/volume] in BloodOrdered By: Laci Larsen on 10-28-2023 Hemoglobin (Bld) [Mass/Vol] 13.4 g/dL Normal 11.8-15.4 [facility] Comment on above: Performed By: #### A NA, C4, CH50, C3 #### [facility] , #### CMP, CRP, ESR, CBC, ADDONUAPLUS, PTH, CK #### [facility] [address] [place] [address] Ketones Auto test strip (U) [Mass/Vol]Ordered By: Laci Larsen on 10-28-2023 Ketones (U) [Mass/Vol] Negative Negative [facility] - UrinalysisOrder ed By: Laci Larsen on 10-28-2023 Hyaline casts LM Ql (Urine sed) 0-8 [LPF] 0-8 [facility] Leukocytes [#/volume] correc lolly for nucleated erythrocytes in Blood by Automated counOrdered By: Laci Larsen on 10-28-2023 WBC corrected for nucl RBC Auto (Bld) [#/Vol] 7.8 10*3/uL 3.8-11.6 [facility] Leukocytes [#/volume] in Blo od by Automated countOrdered By: Laci Larsen on 10-28-2023 WBC (Bld) [#/Vol] 7.8 10*3/uL Normal 3.8-11.6 [facility] Comment on above: Performed By: #### A NA, C4, CH50, C3 #### [facility] , #### CMP, CRP, ESR, CBC, ADDONUAPLUS, PTH, CK #### [address] Lymphocytes [#/volume] in Bl ood by Automated countOrdered By: Laci Larsen on 10-28-2023 Lymphocytes (Bld) [#/Vol] 2.4 10*3/uL Normal 1.00-4.8 [facility] Comment on above: Performed By: #### A NA, C4, CH50, C3 #### [facility] , #### CMP, CRP, ESR, CBC, ADDONUAPLUS, PTH, CK #### [place] [address] [place] Lymphocytes/100 leukocytes i n Blood by Automated countOrdered By: Laci Larsen on 10-28-2023 Lymphocytes/100 WBC (Bld) 31.4 % Normal . [facility] Comment on above: Performed By: #### A NA, C4, CH50, C3 #### [facility] , #### CMP, CRP, ESR, CBC, ADDONUAPLUS, PTH, CK #### [address] MCH [Entitic mass] by Automa lolly countOrdered By: Laci Larsen on 10-28-2023 MCH (RBC) [Entitic mass] 29.0 pg Normal 24.7-34.3 [facility] Comment on above: Performed By: #### A NA, C4, CH50, C3 #### [facility] , #### CMP, CRP, ESR, CBC, ADDONUAPLUS, PTH, CK #### [address] MCHC Auto (RBC) [Mass/Vol]Or dered By: Laci Larsen on 10-28-2023 MCHC (RBC) [Mass/Vol] 33.5 g/dL 32.0-35.0 [facility] MCV [Entitic volume] by Auto mated countOrdered By: Laci Larsen on 10-28-2023 MCV (RBC) [Entitic vol] 86.8 fL Normal 80-100 [facility] Comment on above: Performed By: #### A NA, C4, CH50, C3 #### [facility] , #### CMP, CRP, ESR, CBC, ADDONUAPLUS, PTH, CK #### [address] Neutrophils [#/volume] in Bl ood by Automated countOrdered By: Laci Larsen on 10-28-2023 Neutrophils (Bld) [#/Vol] 4.5 10*3/uL Normal 1.8-7.7 [facility] Comment on above: Performed By: #### A NA, C4, CH50, C3 #### [facility] , #### CMP, CRP, ESR, CBC, ADDONUAPLUS, PTH, CK #### [facility] [address] Nitrite Test strip Ql (U)Ord ered By: Laci Larsen on 10-28-2023 Nitrite Ql (U) Negative Negative [facility] No Panel InformationOrdered By: Laci Larsen on 10-28-2023 Estimated GFR (CKD-EPI) > 60.0 mL/Min [facility] Creatinine Clearance (Chem N/A [facility] Total Complement (CH50) >60 U/mL >41 [facility] Comment on above: Age Male Female 1 - 30 days Not Estab. Not Estab. 31 days - 6 months >32 >20 7 months - 17 years >39 >39 >17 years >41 >41 NOTE: The adult ( >17 years ) reference interval range is used to flag abnormals on this report. If the patient is 17 years old or younger, use the table above to determine out of range values.Performed at: [facility] [address] [id number] Director: Hudson Bella PhD, Phone: [phone] Nucleated erythrocytes [Pres ence] in Blood by Automated countOrdered By: Laci Larsen on 10-28-2023 Nucleated RBC Auto Ql (Bld) 0.1 /100{WBC} 0-0.5 [facility] Parathyrin.intact [Mass/volu me] in Serum or PlasmaOrdered By: Laci Larsen on 10-28-2023 Parathyrin.intact [Mass/Vol] 71.3 pg/mL [facility] Parathyroid Hormone Intacton 10-28-2023 Parathyroid Hormone Intact 71.3 pg/mL Normal [facility] Comment on above: Result Comment: PERF ORMED BY: [place] [address] PATHOLOGIST SNAP SHEARER REID HOGUE M.D. Performed By: #### A NA, C4, CH50, C3 #### [facility] , #### CMP, CRP, ESR, CBC, ADDONUAPLUS, PTH, CK #### [facility] [address] [place] [id number] [place] Platelet mean volume [Entiti c volume] in Blood by Automated countOrdered By: Laci Larsen on 10-28-2023 Platelet mean volume (Bld) [Entitic vol] 9.4 fL Normal 6.3-10.7 [facility] Comment on above: Performed By: #### A NA, C4, CH50, C3 #### [facility] , #### CMP, CRP, ESR, CBC, ADDONUAPLUS, PTH, CK #### [address] Platelets [#/volume] in Bloo d by Automated countOrdered By: Laci Larsen on 10-28-2023 Platelets (Bld) [#/Vol] 339 10*3/uL Normal 150-450 [facility] Comment on above: Performed By: #### A NA, C4, CH50, C3 #### [facility] , #### CMP, CRP, ESR, CBC, ADDONUAPLUS, PTH, CK #### [address] Potassium [Moles/volume] in Serum or PlasmaOrdered By: Laci Larsen on 10-28-2023 Potassium [Moles/Vol] 4.2 mmol/L Normal 3.5-5.1 [facility] Comment on above: Performed By: #### A NA, C4, CH50, C3 #### [facility] , #### CMP, CRP, ESR, CBC, ADDONUAPLUS, PTH, CK #### [address] Protein Auto test strip (U) [Mass/Vol]Ordered By: Laci Larsen on 10-28-2023 Protein (U) [Mass/Vol] Negative Negative [facility] Protein [Mass/volume] in Ser um or PlasmaOrdered By: Laci Larsen on 10-28-2023 Protein [Mass/Vol] 7.5 g/dL Normal 6.4-8.9 [facility] Comment on above: Performed By: #### A NA, C4, CH50, C3 #### [facility] , #### CMP, CRP, ESR, CBC, ADDONUAPLUS, PTH, CK #### [facility] [address] Serum globulin measurement b y calculation (mass/volume)Ordered By: Laci Larsen on 10-28-2023 Globulin (S) [Mass/Vol] 2.7 g/dL Normal [facility] Comment on above: Performed By: #### A NA, C4, CH50, C3 #### [facility] , #### CMP, CRP, ESR, CBC, ADDONUAPLUS, PTH, CK #### [facility] [address] Serum nuclear antibody titer Ordered By: Laci Larsen on 10-28-2023 Nuclear Ab (S) [Titer] Negative . [facility] Comment on above: Negative <1:80 Borde rline 1:80 Positive >1:80ICAP nomenclature: [id number] more information about Hep-2 cell patterns useANApatterns.org, the official website for theInternational Consensus on Antinuclear Antibody (SHARONA)Patterns (ICAP).Performed at: [facility] [id number] Director: Hudson Bella PhD, Phone: [phone] Serum or plasma albumin/glob ulin mass ratioOrdered By: Laci Larsen on 10-28-2023 Albumin/Globulin [Mass ratio] 1.8 {ratio} [facility] Comment on above: Performed By: #### A NA, C4, CH50, C3 #### [facility] , #### CMP, CRP, ESR, CBC, ADDONUAPLUS, PTH, CK #### [address] Serum or plasma anion gap de terminationOrdered By: Laci Larsen on 10-28-2023 Anion gap [Moles/Vol] 12.1 mmol/L Normal 6.0-15.0 [facility] Comment on above: Performed By: #### A NA, C4, CH50, C3 #### [facility] , #### CMP, CRP, ESR, CBC, ADDONUAPLUS, PTH, CK #### [address] Serum or plasma complement C 3 measurement (mass/volume)Ordered By: Laci Larsen on 10-28-2023 Complement C3 [Mass/Vol] 169 mg/dL 82-167 [facility] Comment on above: Performed at: [place] [id number] Director: Hudson Bella PhD, Phone: [phone] Serum or plasma complement C 4 measurement (mass/volume)Ordered By: Laci Larsen on 10-28-2023 Complement C4 [Mass/Vol] 27 mg/dL 12-38 [facility] Sodium [Moles/volume] in Ser um or PlasmaOrdered By: Laci Larsen on 10-28-2023 Sodium [Moles/Vol] 139 mmol/L Normal 136-145 [facility] Comment on above: Performed By: #### A NA, C4, CH50, C3 #### [facility] , #### CMP, CRP, ESR, CBC, ADDONUAPLUS, PTH, CK #### [address] Specific gravity Auto test s trip (U) [Rel density]Ordered By: Laci Larsen on 10-28-2023 Specific gravity (U) [Rel density] 1.023 1.001-1.030 [facility] Squamous epithelial cells de tection in urine sediment by light microscopyOrdered By: Laci Larsen on 10-28-2023 Epithelial cells.squamous LM Ql (Urine sed) 1-2 [HPF] 0-2 [facility] Urea nitrogen [Mass/volume] in Serum or PlasmaOrdered By: Laci Larsen on 10-28-2023 Urea nitrogen [Mass/Vol] 15 mg/dL Normal 7-25 [facility] Comment on above: Performed By: #### A NA, C4, CH50, C3 #### [facility] , #### CMP, CRP, ESR, CBC, ADDONUAPLUS, PTH, CK #### [facility] [address] Urine bacteria detection by automated methodOrdered By: Laci Larsen on 10-28-2023 Bacteria Auto Ql (U) None seen None Seen [facility] Urine clarity by refractomet ry automatedOrdered By: Laci Larsen on 10-28-2023 Clarity Refractometry automated (U) Clear Clear [facility] Urine glucose measurement by automated test strip (mass/volume)Ordered By: Laci Larsen on 10-28-2023 Glucose Auto test strip (U) [Mass/Vol] Normal mg/dL Normal [facility] Urine hemoglobin detection b y automated test stripOrdered By: Laci Larsen on 10-28-2023 Hemoglobin Auto test strip Ql (U) Negative Negative [facility] Urine leukocyte esterase det ection by automated test stripOrdered By: Laci Larsen on 10-28-2023 Leukocyte esterase Auto test strip Ql (U) Negative Negative [facility] Urine pH measurement by auto mated test stripOrdered By: Laci Larsen on 10-28-2023 pH (U) 6.0 [pH] Normal 5.0-9.0 [facility] Comment on above: Order Comment: Name Collection Type:: Clean-Voided Midstream Performed By: #### A NA, C4, CH50, C3 #### [facility] , #### CMP, CRP, ESR, CBC, ADDONUAPLUS, PTH, CK #### [facility] [address] [place] [address] [place] Urobilinogen Auto test strip (U) [Mass/Vol]Ordered By: Laci Larsen on 10-28-2023 Urobilinogen (U) [Mass/Vol] Normal mg/dL Normal [facility] BUNon 12-26-2022 Urea nitrogen [Mass/Vol] 12.0 mg/dL Normal 7.0-18.0 [facility] Comment on above: Performed By: #### B UN, CREA #### [facility] [address] [place] [address] [address] Sanjay Srinivasan CBC AUTO DIFFon 12-26-2022 BASO # 0.0 103/ul Normal 0.0-0.1 [facility] Comment on above: Performed By: #### C BC #### [facility] [address] [place] [address] [address] Sanjay Srinivasan Basophils/100 WBC (Bld) 0.1 % Critically low 0.2-2.0 [facility] Comment on above: Performed By: #### C BC #### [facility] [address] [place] [address] Dr. Sanjay Srinivasan EO # 0.0 103/ul Normal 0.0-0.7 [facility] Comment on above: Performed By: #### C BC #### [facility] [address] [place] [address] Dr. Sanjay Srinivasan Eosinophils/100 WBC (Bld) 0.1 % Critically low 0.9-7.0 [facility] Comment on above: Performed By: #### C BC #### [facility] [address] [place] [address] Dr. Sanjay Srinivasan Erythrocyte distribution width (RBC) [Ratio] 13.3 % Normal 11.0-15.0 [facility] Comment on above: Performed By: #### C BC #### [facility] [address] [place] [address] Dr. Sanjay Srinivasan Hematocrit (Bld) [Volume fraction] 30.5 % Critically low 36.0-48.0 [facility] Comment on above: Performed By: #### C BC #### [facility] [address] [place] [address] Dr. Sanjay Srinivasan Hemoglobin (Bld) [Mass/Vol] 9.6 g/dL Critically low 12.0-16.0 [facility] Comment on above: Performed By: #### C BC #### [facility] [address] [place] [address] Dr. Sanjay Srinivasan IG # 0.05 10e3/ul Critically high 0.00-0.03 [facility] Comment on above: Performed By: #### C BC #### [facility] [address] [place] [address] Dr. Sanjay Srinivasan IG % 0.4 % Normal 0.0-0.5 [facility] Comment on above: Performed By: #### C BC #### [facility] [address] [place] [address] [address] Sanjay Srinivasan LYMPH # 0.9 103/ul Critically low 1.2-3.8 [facility] Comment on above: Performed By: #### C BC #### [facility] [address] [place] [address] Dr. Sanjay Srinivasan Lymphocytes/100 WBC (Bld) 7.6 % Critically low 20.5-60.0 [facility] Comment on above: Performed By: #### C BC #### [facility] [address] [place] [address] Dr. Sanjay Srinivasan MANUAL DIFF REQ NO Normal [facility] Comment on above: Performed By: #### C BC #### [facility] [address] [place] [address] Dr. Sanjay Srinivasan MCH (RBC) [Entitic mass] 28.7 pg Normal 26.7-34.0 [facility] Comment on above: Performed By: #### C BC #### [facility] [address] [place] [address] Dr. Sanjay Srinivasan MCHC (RBC) [Mass/Vol] 31.5 g/dL Normal 29.9-35.2 [facility] Comment on above: Performed By: #### C BC #### [facility] [address] [place] [address] Dr. Sanjay Srinivasan MCV (RBC) [Entitic vol] 91.3 fL Normal 81.0-99.0 [facility] Comment on above: Performed By: #### C BC #### [facility] [address] [place] [address] Dr. Sanjay Srinivasan MONO # 0.8 103/ul Normal 0.3-0.8 [facility] Comment on above: Performed By: #### C BC #### [facility] [address] [place] [address] [address] Sanjay Srinivasan Monocytes/100 WBC (Bld) 6.2 % Normal 1.7-12.0 [facility] Comment on above: Performed By: #### C BC #### [facility] [address] [place] [address] [address] Sanjay Srinivasan NEUT # 10.4 103/ul Critically high 1.4-6.5 [facility] Comment on above: Performed By: #### C BC #### [facility] [address] [place] [address] [address] Sanjay Srinivasan Neutrophils/100 WBC (Bld) 85.6 % Critically high 43.0-75.0 [facility] Comment on above: Performed By: #### C BC #### [facility] [address] [place] [address] Dr. Sanjay Srinivasan Platelet mean volume (Bld) [Entitic vol] 11.5 fL Normal 9.5-13.5 [facility] Comment on above: Performed By: #### C BC #### [facility] [address] [place] [address] [address] Sanjay Srinivasan PLT 301 103/ul Normal 150-450 [facility] Comment on above: Performed By: #### C BC #### [facility] [address] [place] [address] [address] Sanjay Srinivasan RBC 3.34 106/ul Critically low 4.20-5.[address] [facility] Comment on above: Performed By: #### C BC #### [facility] [address] [place] [address] [address] Sanjay Srinivasan WBC 12.1 103/ul Critically high 4.0-11.0 [facility] Comment on above: Performed By: #### C BC #### [facility] [address] [place] [address] [address] Sanjay Srinivasan CREATININEon 12-26-2022 Creatinine [Mass/Vol] 0.99 mg/dL Normal 0.55-1.02 [facility] Comment on above: Performed By: #### B UN, CREA #### [facility] [address] [place] [address] Dr. Sanjay Srinivasan EGFR-AF GIBRALTARIAN >60 Normal >=60 [facility] Comment on above: Performed By: #### B UN, CREA #### [facility] [address] [place] [address] Dr. Sanjay Srinivasan EGFR-NON AF GIBRALTARIAN 59 mL/min/1.73m2 Critically low >=60 [facility] Comment on above: Performed By: #### B UN, CREA #### [facility] [address] [place] [address] Dr. Sanjay Srinivasan HEMOGLOBIN AND HEMATOCRITon 12-26-2022 Hematocrit (Bld) [Volume fraction] 30.9 % Critically low 36.0-48.0 [facility] Comment on above: Performed By: #### H GBHCT #### [facility] [address] [place] [address] Dr. Sanjay Srinivasan Hemoglobin (Bld) [Mass/Vol] 9.8 g/dL Critically low 12.0-16.0 [facility] Comment on above: Performed By: #### H GBHCT #### [facility] [address] [place] [address] Dr. Sanjay Srinivasan PREG QUANT HCGon 12-23-2022 HCG QUANT 1 mIU/mL Normal [facility] Comment on above: Performed By: #### P REGQNT #### [facility] [address] [place] [address] Dr. Sanjay Srinivasan HCG RANGE SEE BELOW Normal [facility] Comment on above: Result Comment: 5-50 0.2-1 WEEK 50-500 1-2 WEEKS 100-5,000 2-3 WEEKS 500-10,000 3-4 WEEKS 1,000-50,000 4-5 WEEKS 10,000-100,000 5-6 WEEKS 15,000-200,000 6-8 WEEKS 10,000-100,000 2-3 MONTHS Performed By: #### P REGQNT #### [facility] [address] [place] [address] Dr. Sanjay Srinivasan TYPE AND SCREENon 12-23-2022 TYPE AND SCREEN Negative Normal [facility] Comment on above: Performed By: #### T NS #### [facility] [address] [place] [address] Dr. Sanjay Srinivasan CBC AUTO DIFFon 11-30-2022 BASO # 0.1 103/ul Normal 0.0-0.1 [facility] Comment on above: Performed By: #### C BC #### [facility] [address] [place] [address] Dr. Sanjay Srinivasan Basophils/100 WBC (Bld) 0.9 % Normal 0.2-2.0 [facility] Comment on above: Performed By: #### C BC #### [facility] [address] [place] [address] Dr. Sanjay Srinivasan EO # 0.2 103/ul Normal 0.0-0.7 [facility] Comment on above: Performed By: #### C BC #### [facility] [address] [place] [address] Dr. Sanjay Srinivasan Eosinophils/100 WBC (Bld) 1.8 % Normal 0.9-7.0 [facility] Comment on above: Performed By: #### C BC #### [facility] [address] [place] [address] Dr. Sanjay Srinivasan Erythrocyte distribution width (RBC) [Ratio] 13.3 % Normal 11.0-15.0 [facility] Comment on above: Performed By: #### C BC #### [facility] [address] [place] [address] Dr. Sanjay Srinivasan Hematocrit (Bld) [Volume fraction] 39.2 % Normal 36.0-48.0 [facility] Comment on above: Performed By: #### C BC #### [facility] [address] [place] [address] Dr. Sanjay Srinivasan Hemoglobin (Bld) [Mass/Vol] 13.5 g/dL Normal 12.0-16.0 [facility] Comment on above: Performed By: #### C BC #### [facility] [address] [place] [address] Dr. Sanjay Srinivasan IG # 0.03 10e3/ul Normal 0.00-0.03 [facility] Comment on above: Performed By: #### C BC #### [facility] [address] [place] [address] Dr. Sanjay Srinivasan IG % 0.4 % Normal 0.0-0.5 [facility] Comment on above: Performed By: #### C BC #### [facility] [address] [place] [address] Dr. Sanjay Srinivasan LYMPH # 2.0 103/ul Normal 1.2-3.8 [facility] Comment on above: Performed By: #### C BC #### [facility] [address] [place] [address] Dr. Sanjay Srinivasan Lymphocytes/100 WBC (Bld) 23.9 % Normal 20.5-60.0 [facility] Comment on above: Performed By: #### C BC #### [facility] [address] [place] [address] Dr. Sanjay Srinivasan MANUAL DIFF REQ NO Normal [facility] Comment on above: Performed By: #### C BC #### [facility] [address] [place] [address] Dr. Sanjay Srinivasan MCH (RBC) [Entitic mass] 28.8 pg Normal 26.7-34.0 [facility] Comment on above: Performed By: #### C BC #### [facility] [address] [place] [address] Dr. Sanjay Srinivasan MCHC (RBC) [Mass/Vol] 34.4 g/dL Normal 29.9-35.2 [facility] Comment on above: Performed By: #### C BC #### [facility] [address] [place] [address] Dr. Sanjay Srinivasan MCV (RBC) [Entitic vol] 83.6 fL Normal 81.0-99.0 [facility] Comment on above: Performed By: #### C BC #### [facility] [address] [place] [address] Dr. Sanjay Srinivasan MONO # 0.5 103/ul Normal 0.3-0.8 [facility] Comment on above: Performed By: #### C BC #### [facility] [address] [place] [address] Dr. Sanjay Srinivasan Monocytes/100 WBC (Bld) 5.6 % Normal 1.7-12.0 [facility] Comment on above: Performed By: #### C BC #### [facility] [address] [place] [address] Dr. Sanjay Srinivasan NEUT # 5.5 103/ul Normal 1.4-6.5 [facility] Comment on above: Performed By: #### C BC #### [facility] [address] [place] [address] Dr. Sanjay Srinivasan Neutrophils/100 WBC (Bld) 67.4 % Normal 43.0-75.0 [facility] Comment on above: Performed By: #### C BC #### [facility] [address] [place] [address] Dr. Sanjay Srinivasan Platelet mean volume (Bld) [Entitic vol] 10.3 fL Normal 9.5-13.5 [facility] Comment on above: Performed By: #### C BC #### [facility] [address] [place] [address] Dr. Sanjay Srinivasan PLT 406 103/ul Normal 150-450 [facility] Comment on above: Performed By: #### C BC #### [facility] [address] [place] [address] Dr. Sanjay Srinivasan RBC 4.69 106/ul Normal 4.20-5.40 [facility] Comment on above: Performed By: #### C BC #### [facility] [address] [place] [address] Dr. Sanjay Srinivasan WBC 8.2 103/ul Normal 4.0-11.0 [facility] Comment on above: Performed By: #### C BC #### [facility] [address] [place] [address] Dr. Sanjay Srinivasan LIVER PROFILEon 11-30-2022 Albumin [Mass/Vol] 4.0 g/dL Normal 3.4-5.0 [facility] Comment on above: Performed By: #### L IVHUBERT, BMP ####[facility] [address] [address]Dr. Sanjay Srinivasan Albumin/Globulin [Mass ratio] 1.1 {ratio} Normal [facility] Comment on above: Performed By: #### L IVER, BMP ####[facility] [address] [address]Dr. Sanjay Srinivasan ALP [Catalytic activity/Vol] 71 U/L Normal 46-116 [facility] Comment on above: Performed By: #### L IVHUBERT, BMP ####[facility] [address] [place], [place] [address]Dr. Sanjay Srinivasan ALT [Catalytic activity/Vol] 20 U/L Normal 14-59 [facility] Comment on above: Performed By: #### L FREDIS, BMP ####[facility] [address] [place], [place] [address]Dr. Sanjay Srinivasan AST [Catalytic activity/Vol] 17 U/L Normal 15-37 [facility] Comment on above: Performed By: #### L FREDIS, BMP ####[facility] [address] [place], [place] [address]Dr. Sanjay Srinivasan BILI, CONJUGATED 0.1 mg/dL Normal 0.0-0.2 [facility] Comment on above: Performed By: #### L IVHUBERT, BMP ####[facility] [address] [place], [place] [address]Dr. Sanjay Srinivasan Bilirubin [Mass/Vol] 0.2 mg/dL Normal 0.2-1.0 [facility] Comment on above: Performed By: #### L IVHUBERT, BMP ####[facility] [address] [place], [place] [address]Dr. Sanjay Srinivasan Globulin (S) [Mass/Vol] 3.6 g/dL Normal [facility] Comment on above: Performed By: #### L IVER, BMP ####[facility] [address] [place], [place] [address]Dr. Sanjay Srinivasan Protein [Mass/Vol] 7.6 g/dL Normal 6.4-8.2 [facility] Comment on above: Performed By: #### Jamie MCNEAL BMP ####[facility] [address] [address]Dr. Sanjay Srinivasan PROF CHEM 8 (BAS METB)on Anion gap [Moles/Vol] 14.1 mmol/L Normal [facility] Comment on above: Performed By: #### Jamie MCNEAL, BMP ####[facility] [address] [place], [place] [address]Dr. Sanjay Srinivasan Calcium [Mass/Vol] 9.2 mg/dL Normal 8.5-10.1 [facility] Comment on above: Performed By: #### Jamie MCNEAL BMP ####[facility] [address] [place], [place] [address]Dr. Sanjay Srinivasan Chloride [Moles/Vol] 101 mmol/L Normal 98-107 [facility] Comment on above: Performed By: #### Jamie MCNEAL, BMP ####[facility] [address] [place], [place] [address]Dr. Sallyorlin Srinivasan CO2 [Moles/Vol] 26.6 mmol/L Normal 21.0-32.0 [facility] Comment on above: Performed By: #### Jamie MCNEAL, BMP ####[facility] [address] [place], [place] [address]Dr. Sanjay Srinivasan Creatinine [Mass/Vol] 0.83 mg/dL Normal 0.55-1.02 [facility] Comment on above: Performed By: #### Jamie MCNEAL, BMP ####[facility] [address] [address]Dr. Sanjay Srinivasan EGFR-AF GIBRALTARIAN >60 Normal >=60 [facility] Comment on above: Performed By: #### Jamie MCNEAL, BMP ####[facility] [address] [place], [place] [address]Dr. Sanjay Srinivasan EGFR-NON AF GIBRALTARIAN >60 Normal >=60 [facility] Comment on above: Performed By: #### Jamie MCNEAL, BMP ####[facility] [address] [address]Dr. Sanjay Srinivasan Glucose [Mass/Vol] 124 mg/dL Critically high 74-106 [facility] Comment on above: Performed By: #### Jamie MCNEAL, BMP ####[facility] [address] [address]Dr. Sanjay Srinivasan Potassium [Moles/Vol] 3.7 mmol/L Normal 3.5-5.1 [facility] Comment on above: Performed By: #### Jamie MCNEAL, BMP ####[facility] [address] [address]Dr. Sanjay Srinivasan Sodium [Moles/Vol] 138 mmol/L Normal 136-145 [facility] Comment on above: Performed By: #### Jamie MCNEAL, BMP ####[facility] [address] [place] [address]Dr. Sanjay Srinivasan Urea nitrogen [Mass/Vol] 14.0 mg/dL Normal 7.0-18.0 [facility] Comment on above: Performed By: #### Jamie MCNEAL, BMP ####[facility] [address] [place] [address]Dr. Sanjay Srinivasan Urea nitrogen/Creatinine [Mass ratio] 16.9 mg/mg Normal [facility] Comment on above: Performed By: #### Jamie MCNEAL, BMP ####[facility] [address] [place] [address]Dr. Sanjay Srinivasan PROTIMEon 11-30-2022 INR Coag (PPP) [Relative time] 0.95 {INR} Normal [facility] Comment on above: Performed By: #### P TT, PT #### [facility] [address] [place] [address] Dr. Sanjay Srinivasan INR GUIDELINES SEE BELOW Normal [facility] Comment on above: Result Comment: SHUBHAM RED INR: 2.0 - 3.0 CONDITIONS NOT LISTED BELOW 2.5 - 3.5 FOR PROSTHETIC HEART VALVE REPLACEMENT 2.5 - 3.5 RECURRENT THROMBOSIS Performed By: #### P TT, PT #### [facility] [address] [address] [address] Sanjay Srinivasan PT Coag (PPP) [Time] 10.3 s Normal 9.0-11.6 [facility] Comment on above: Performed By: #### P TT, PT #### [facility] [address] [address] [address] Sanjay Srinivasan PTTon 11-30-2022 aPTT Coag (Bld) [Time] 28.8 s Normal 22.3-36.2 [facility] Comment on above: Performed By: #### P TT, PT #### [facility] [address] [address] [address] Sanjay Srinivasan FREE T4on 2022 Free T4 [Mass/Vol] 0.99 ng/dL Normal 0.76-1.46 [facility] Comment on above: Performed By: #### F T4 ####[facility] [address] [place] [address]Dr. Sanjay Srinivasan TSHon 2022 TSH 1.054 uIU/mL Normal 0.358-3.740 [facility] Comment on above: Performed By: #### T SH ####[facility] [address] [address]Dr. Sanjay Srinivasan US PELVIS AND TRANSVAGon US PELVIS AND TRANSVAG EXAMINATION: US PELVIS AND TRANSVAG HISTORY: Hypertrophy of uterus ; uterine fibroids COMPARISON: No relevant comparison available. TECHNIQUE: Transabdominal and transvaginal sonographic examination. FINDINGS: UTERUS: Enlarged heterogeneous uterus with suspected large mass arising within right uterine wall, approximately 10.7 x 9.9 x 11.9 cm. Several small nabothian cysts within cervix. Uterus size: 13.1 x 8.2 x 12.9 cm ENDOMETRIUM: Abnormally thickened, but homogeneous echotexture. Endometrial thickness: 24 mm RIGHT OVARY: Not well seen. Duplex Doppler demonstrates normal waveform and flow; resistive index 0.6. Ovary size: 5.7 x 5.4 x 5.8 cm LEFT OVARY: Contains a small 1.4 cm simple appearing cyst. Duplex Doppler demonstrates normal waveform and flow; resistive index 0.5. Ovary size: 2.7 x 2.4 x 2.4 cm CUL-DE-SAC: Unremarkable. No significant free fluid. BLADDER: Unremarkable. OTHER: None. IMPRESSION: 1. Enlarged uterus with large heterogeneous mass within right uterine wall favoring a leiomyoma, 11.9 cm in diameter. 2. Abnormally thickened endometrium of uncertain etiology. Electronically authenticated by: RICKIE OREILLY Date: 2022 15:30 Normal [facility] XR ABDOMEN (KUB) (SINGLE AP VIEW)Ordered By: Saul Thurman on 08-14-2021 Nonobstructive bowel gas pattern, moderate colonic fecal burden Left nephrolithiasis [employer] Phone: EXAMINATION: ONE SUPINE XRAY VIEW(S) OF THE ABDOMEN 08/14/2021 1:55 pm COMPARISON: CT abdomen pelvis May 01, 2021 HISTORY: ORDERING SYSTEM PROVIDED HISTORY: Renal calculus, left TECHNOLOGIST PROVIDED HISTORY: s/p ESWL FINDINGS: There is gas throughout the GI tract to the rectosigmoid colon with a moderate colonic fecal burden without significant small or large bowel distension or indirect findings to suggest free air There are no aggressive bony lesions There is a 7-8 mm left mid renal calcification. There are no other definite left renal or ureteral calcifications. There is limited right renal assessment related to overlying fecal filled colon [employer] Phone: [place], [facility] Incoming Radiant Results From [email or web address] - 08/14/2021 2:11 PM EDT EXAMINATION: ONE SUPINE XRAY VIEW(S) OF THE ABDOMEN 08/14/2021 1:55 pm COMPARISON: CT abdomen pelvis May 01, 2021 HISTORY: ORDERING SYSTEM PROVIDED HISTORY: Renal calculus, left TECHNOLOGIST PROVIDED HISTORY: s/p ESWL FINDINGS: There is gas throughout the GI tract to the rectosigmoid colon with a moderate colonic fecal burden without significant small or large bowel distension or indirect findings to suggest free air There are no aggressive bony lesions There is a 7-8 mm left mid renal calcification. There are no other definite left renal or ureteral calcifications. There is limited right renal assessment related to overlying fecal filled colon IMPRESSION: Nonobstructive bowel gas pattern, moderate colonic fecal burden Left nephrolithiasis [employer] Phone: [employer] Phone: COVID-19Ordered By: Andrew motley on 05-17-2021 SARS-CoV-2 (COVID-19) RNA TIFFANY+probe Ql (Unsp spec) [employer] Phone: SARS-CoV-2 (COVID-19) RNA TIFFANY+probe Ql (Unsp spec) Not detected Not Detected [employer] Phone: Comment on above: The specimen is NEGATIVE for SARS-CoV-2, the novel coronavirus associated with COVID-19. A negative result does not rule out COVID-19. Mahendra SARS-CoV-2 for use on the [employer]/8800 Systems is a real-time RT-PCR test intended for the qualitative detection of nucleic acids from SARS-CoV-2 in clinician-collected nasal, nasopharyngeal, and oropharyngeal swab specimens from individuals who meet COVID-19 clinical and/or epidemiological criteria. Mahendra SARS-CoV-2 is for use only under Emergency Use Authorization (EUA) in laboratories certified under Clinical Laboratory Improvement Amendments of 1988 (CLIA), 42 U.S.C. 263a, that meet requirements to perform high or moderate complexity tests. An individual without symptoms of COVID-19 and who is not shedding SARS-CoV-2 virus would expect to have a negative (not detected) result in this assay. Fact sheet for Healthcare Providers: https://www.fda.gov/media/931354/download Fact sheet for Patients: https://www.fda.gov/media/393552/download METHODOLOGY: RT-PCR Source .NASOPHARYNGEAL SWAB [employer] Phone: [employer] Phone: CT UROGRAMOrdered By: Jennifer Botello on 05-01-2021 Nonobstructing 8-mm left renal calculus. Otherwise, unremarkable noncontrast and contrast-enhanced CT examination of the abdomen and pelvis, without additional finding to account for the patient's hematuria. Large solitary anterior intramural fibroid, measuring approximately 9-cm in size. [employer] Phone: EXAMINATION: CT UROGRAM 05/01/2021 3:29 pm TECHNIQUE: CT of the abdomen and pelvis was performed before and after the administration of intravenous contrast as per CT urogram protocol. Multiplanar reformatted images as well as MIP urogram images are provided for review. Dose modulation, iterative reconstruction, and/or weight based adjustment of the mA/kV was utilized to reduce the radiation dose to as low as reasonably achievable. COMPARISON: None. HISTORY: ORDERING SYSTEM PROVIDED HISTORY: Gross hematuria FINDINGS: Lower Chest: Heart size is normal. The visualized lung bases are clear. Organs: The liver, spleen, pancreas, gallbladder, and adrenal glands appear normal. The kidneys are normal in size and morphology with normal renal cortical thickness and no cyst or solid mass. There is a nonobstructing 8-mm calculus within the lateral interpolar region of the left kidney. No ureteral, bladder, or right renal calculi. No hydronephrosis or hydroureter. GI/Bowel: The stomach and the small and large bowel loops are normal in caliber, contour, and morphology, without acute or significant abnormality. No dilated loops or areas of bowel wall thickening. The appendix is normal. Peritoneum/Retroperi toneum: There is no free fluid or extraluminal gas. No enlarged or suspicious mesenteric or retroperitoneal lymphadenopathy. The abdominal aorta and iliac arteries are patent and of normal caliber. Pelvis: No pelvic free fluid or enlarged or suspicious pelvic or inguinal lymphadenopathy. There is a large intramural fibroid within the anterior aspect of the uterine body which measures 8.5 x 8.4 x 9.2 cm in size. No appreciable adnexal abnormality. The urinary bladder appears normal, without appreciable mass or wall thickening. The pelvic bowel loops are unremarkable. Bones/Soft Tissues: No significant osseous abnormality. No abdominal wall or inguinal hernia. [employer] Phone: Barney, pn Incoming Radiant Results From [employer] - 05/01/2021 11:49 PM EDT EXAMINATION: CT UROGRAM 05/01/2021 3:29 pm TECHNIQUE: CT of the abdomen and pelvis was performed before and after the administration of intravenous contrast as per CT urogram protocol. Multiplanar reformatted images as well as MIP urogram images are provided for review. Dose modulation, iterative reconstruction, and/or weight based adjustment of the mA/kV was utilized to reduce the radiation dose to as low as reasonably achievable. COMPARISON: None. HISTORY: ORDERING SYSTEM PROVIDED HISTORY: Gross hematuria FINDINGS: Lower Chest: Heart size is normal. The visualized lung bases are clear. Organs: The liver, spleen, pancreas, gallbladder, and adrenal glands appear normal. The kidneys are normal in size and morphology with normal renal cortical thickness and no cyst or solid mass. There is a nonobstructing 8-mm calculus within the lateral interpolar region of the left kidney. No ureteral, bladder, or right renal calculi. No hydronephrosis or hydroureter. GI/Bowel: The stomach and the small and large bowel loops are normal in caliber, contour, and morphology, without acute or significant abnormality. No dilated loops or areas of bowel wall thickening. The appendix is normal. Peritoneum/Retroperi toneum: There is no free fluid or extraluminal gas. No enlarged or suspicious mesenteric or retroperitoneal lymphadenopathy. The abdominal aorta and iliac arteries are patent and of normal caliber. Pelvis: No pelvic free fluid or enlarged or suspicious pelvic or inguinal lymphadenopathy. There is a large intramural fibroid within the anterior aspect of the uterine body which measures 8.5 x 8.4 x 9.2 cm in size. No appreciable adnexal abnormality. The urinary bladder appears normal, without appreciable mass or wall thickening. The pelvic bowel loops are unremarkable. Bones/Soft Tissues: No significant osseous abnormality. No abdominal wall or inguinal hernia. IMPRESSION: Nonobstructing 8-mm left renal calculus. Otherwise, unremarkable noncontrast and contrast-enhanced CT examination of the abdomen and pelvis, without additional finding to account for the patient's hematuria. Large solitary anterior intramural fibroid, measuring approximately 9-cm in size. [employer] Phone: [employer] Phone: Urinalysis with MicroscopicO rdered By: Keily Botello on 04-25-2021 - [employer] Phone: Amorphous, UA NOT REPORTED None [employer] Work Phone: Bacteria, UA NOT REPORTED None [employer] [facility] Work Phone: Bilirubin Urine Negative NEGATIVE [employer] Work Phone: Casts UA NOT REPORTED /LPF [facility] Work Phone: Color, UA YELLOW YELLOW [facility] Work Phone: Crystals, UA NOT REPORTED None /HPF [facility] Work Phone: Epithelial Cells UA 2 TO 5 [facility] Work Phone: Glucose, Ur Negative NEGATIVE [facility] Work Phone: Interpretation and review of laboratory results Abnormal [facility] Work Phone: Ketones Ql (U) Negative NEGATIVE [facility] Work Phone: Leukocyte esterase Test strip Ql (U) Negative NEGATIVE [facility] Work Phone: Mucus, UA NOT REPORTED None [facility] Work Phone: Nitrite, Urine Negative NEGATIVE [facility] Work Phone: Other Observations UA NOT REPORTED NOT REQ. M [facility] [employer] Work Phone: pH, UA 6.5 [facility] Work Phone: Protein, UA Negative NEGATIVE [facility] Work Phone: RBC, UA None [facility] Work Phone: Renal Epithelial, UA NOT REPORTED 0 /HPF [facility] Work Phone: Specific [place], UA 1.025 High [facility] Work Phone: Trichomonas, UA NOT REPORTED None [facility] Work Phone: Turbidity UA CLEAR CLEAR [facility] Work Phone: Urinalysis Comments NOT REPORTED [facility] [employer] Work Phone: Urine Hgb Negative NEGATIVE [facility] Work Phone: Urobilinogen, Urine Normal Normal [facility] Work Phone: WBC, UA None [employer] Work Phone: Yeast, UA NOT REPORTED None [employer] Work Phone: [employer] Work Phone: Vital Signs Date Time Vital Sign Value Performing Clinician Dong castellanos 05-20-2021 14:45-0400 Diastolic blood pressure 78 mm[Hg] Fili Sanders MD Work Phone: [employer] Work Phone: 05-20-2021 14:45-0400 Heart rate 63 /min Fili Sanders MD Work Phone: [employer] Work Phone: 05-20-2021 14:45-0400 Respiratory rate 16 /min Fili Sanders MD Work Phone: [employer] Work Phone: 05-20-2021 14:45-0400 SaO2% (BldA) [Mass fraction] 99 % Fili Sanders MD Work Phone: [employer] Work Phone: 05-20-2021 14:45-0400 Systolic blood pressure 139 mm[Hg] Fili Sanders MD Work Phone: [employer] Work Phone: 05-20-2021 14:09-0400 Body temperature 96.91 [degF] Fili Sanders MD Work Phone: [employer] Work Phone: 05-20-2021 12:17-0400 Body height 165.1 cm Fili Sanders MD Work Phone: [employer] Work Phone: 05-20-2021 12:17-0400 Body mass index (BMI) [Ratio] 29.72 kg/m2 Fili Sanders MD Work Phone: [employer] Work Phone: 05-20-2021 12: Body weight 81.01 kg Fili Sanders MD Work Phone: [facility] Work Phone: Encounters Encounter Date Encounter Type Care Provider Facility Start: 08-31-2024 End: 09-02-2024 ambulatory FILI SANDERS [facility] Start: 08-31-2024 End: 09-02-2024 Subsequent hospital visit by physician Deyvi Cabello DO Work Phone: [facility] Start: 08-24-2024 End: 08-24-2024 Patient encounter procedure DO Deyvi Petznick Work Phone: [facility] [address] Work Phone: Start: 08-24-2024 End: 08-24-2024 ambulatory DO Deyvi Petznick Work Phone: [facility] Work Phone: Start: 07-18-2024 Non-patient / Non-visit DO Mat quiana Petznick Work Phone: [facility] Physician [facility] ER Work Phone: Start: 04-07-2024 End: 04-07-2024 Patient encounter procedure DO Deyvi Petznick Work Phone: [facility] Work Phone: Start: 04-07-2024 End: 04-07-2024 ambulatory DO Deyvi Petznick Work Phone: [facility] Work Phone: Start: 02-10-2024 End: 02-10-2024 ambulatory JELANI JAIN Not Available Start: 11-05-2023 End: 11-05-2023 Patient encounter procedure DO Deyvi Petznick Work Phone: [facility]XRay [place] Work Phone: Start: 11-05-2023 End: 11-05-2023 ambulatory DO Deyvi Petznick Work Phone: [facility] Work Phone: Start: 10-28-2023 End: 10-28-2023 Patient encounter procedure DO Deyvi Cabello Work Phone: [facility]-Lab [address] Work Phone: Start: 10-28-2023 End: 10-28-2023 ambulatory Laci Oneydajavier Facility:[facility] Start: 03-19-2023 End: 03-19-2023 ambulatory DO Deyvi Cabello Work Phone: [facility] Work Phone: Start: 03-19-2023 End: 03-19-2023 Patient encounter procedure DO Deyvi Cabello Work Phone: [facility] Work Phone: Start: 12-26-2022 Encounter for preprocedural cardiovascular examination DR JELANI JAIN . [facility] Start: 12-26-2022 Encounter for preprocedural laboratory examination DR JELANI JAIN . [facility] Start: 12-25-2022 End: 12-26-[address] JELANI JAIN . Facility:[facility] Start: 12-23-2022 End: 12-24-[address] JELANI JAIN . Facility:[facility] Start: 12-23-2022 End: 12-24-2022 Encounter for preprocedural laboratory examination DR JELANI JAIN . Facility:[facility] Start: 11-30-2022 End: 12-01-[address] JELANI JAIN . Facility:[facility] Start: 2022 End: 10-24-[address] JELANI JAIN . Facility:[facility] Start: 08-14-2022 End: 08-16-2022 Subsequent hospital visit by physician Deyvi Cabello DO Work Phone: [facility] Radiology Start: 08-14-2021 End: 08-16-2021 Subsequent hospital visit by physician Ko Meza Dr Room 4 [facility] Radiology Comment on above: Renal calculus, left Start: 05-20-2021 End: 05-20-2021 Subsequent hospital visit by physician Fili Sanders MD Work Phone: [facility] OR Start: 05-16-2021 End: 05-20-2021 Patient encounter status [facility] Schedule [facility] PRE ADMIT Start: 05-16-2021 End: 05-20-2021 Subsequent hospital visit by physician Ko Covid19 Pat Screening Schedule [facility] PRE ADMIT Comment on above: Preop testing (Prima ry Dx) Start: 05-01-2021 End: 05-03-2021 Subsequent hospital visit by physician Ko Cat Scan Room [facility] CT Scan Comment on above: Gross hematuria Start: 04-25-2021 End: 04-25-2021 Subsequent hospital visit by physician Deyvi Cabello DO Work Phone: [facility] Laboratory Comment on above: Gross hematuria Start: 11-12-2014 End: 11-12-2014 Telephone encounter Abel Malin MD Work Phone: Reproductive Endocrinology Infertility Start: 11-30-2004 Evaluation and manag ement of inpatient DO Deyvi Petznick Work Phone: [facility] [place] Work Phone: Procedures Date Procedure Procedure Detail Performing Clinician Start: 04-07-2024 Screening mammograph y of bilateral breasts DO Deyvi Petznick Work Phone: Start: 11-05-2023 Plain X-ray of bilat eral hands DO Deyvi Petznick Work Phone: Start: 11-05-2023 X-ray of both knees DO Deyvi Petznick Work Phone: Start: 11-05-2023 X-ray of right ankle DO Deyvi Petznick Work Phone: Start: 03-19-2023 Screening mammograph y of bilateral breasts DO Deyvi Petznick Work Phone: Start: 08-14-2021 Radiologic exam abdo men 1 view Saul Thurman PA-C Work Phone: Start: 05-16-2021 COVID-19 Andrew motley MD Work Phone: Start: 05-01-2021 Ct abdomen & pelvis w/o contrst 1/> body re Keily Botello TORPEDO WORKER - WORKERS COMPENSATION EXAMINER Work Phone: Start: 04-25-2021 Urnls dip stick/tabl et reagent auto microscopy Keily Botello TORPEDO WORKER - WORKERS COMPENSATION EXAMINER Work Phone: Plan of Treatment Date Care Activity Detail Author Start: 09-15-2024 End: 09-15-2024 Patient encounter procedure 09/15/2024 9:00 AM EDT Office Visit [facility] [address] [place] [address] Fili Sandesr MD [address] [place] [address], [address] [place] [address] 1 year f/u, KUB prior [facility] Comment on above: 1 year f/u, KUB prio r Start: 07-23-2024 COVID-19 Vaccine ( season) COVID-19 Vaccine ( season) [facility] Start: 06-22-2024 Influenza vaccination Flu vaccine (# 1) [facility] Start: 03-20-2024 Screening for malign ant neoplasm of breast Breast cancer screen [facility] Start: 08-20-2022 End: 08-20-2022 Patient encounter procedure 08/20/2022 Office Visit [facility] Start: 07-23-2022 Influenza vaccination Flu vaccine (# 1) [facility] Start: 2021 Screening for malign ant neoplasm of breast Breast cancer screen [facility] Start: 2021 Shingles vaccine (1 of 2) Shingles vaccine (1 of 2) [facility] Start: 08-21-2021 End: 08-21-2021 Patient encounter procedure 08/21/2021 Office Visit Urology Keily Botello, TORPEDO WORKER - WORKERS COMPENSATION EXAMINER [address] [place] [id number] [facility] UROLOGY [facility] of [facility] Start: 07-23-2021 Influenza vaccination [facility] Start: 05-20-2021 End: 05-20-2021 Admission to same day surgery center 05/20/2021 Surgery IP Unit Fili Sanders MD [address] [place] [address], [address] [place] [address] ESWL EXTRACORPOREAL SHOCK WAVE LITHOTRIPSY [facility] OR Comment on above: ESWL EXTRACORPOREAL SHOCK WAVE LITHOTRIPSY Start: 05-20-2021 Subsequent hospital visit by physician 05/20/2021 Hospital Encounter IP Unit Fili Sanders MD [address] [place] [address], [address] [place] [address] [facility] OR Start: 05-01-2021 End: 05-01-2021 Patient encounter procedure 05/01/2021 Appointment Radiology [facility] CT Scan Start: 2016 DIABETES SCREEN DIABETES SCREEN [facility] Start: 2016 LIPID SCREEN LIPID SCREEN [facility] Start: 2016 Screening for malign ant neoplasm of colon [facility] Start: 2011 Diabetes screen Diabetes screen [facility] Work Phone: Start: 2011 Lipid panel [facility] Start: 2011 Mammography MAMMOGRAM [facility] Start: 2006 Diabetes screen Diabetes screen [facility] Start: 2001 HPV TESTING HPV TESTING [facility] Start: 2001 Screening for malign ant neoplasm of cervix [facility] Start: 1992 PAP TESTING PAP TESTING [facility] Start: 1992 Screening for malign ant neoplasm of cervix [facility] Start: 1990 DTaP/Tdap/Td vaccine (1 - Tdap) DTaP/Tdap/Td vaccine (1 - Tdap) [facility] Start: 1990 Hepatitis B vaccine (1 of 3 - 19+ 3-dose series) Hepatitis B vaccine (1 of 3 - 19+ 3-dose series) [facility] [place] [facility] Start: 1990 Urine microalbumin profile DTAP,TDAP,TD (1 - Tdap) [facility] Start: 1989 HEPATITIS C SCREENING [facility]PATITIS C [facility] Start: 1989 Hepatitis C screening Hepatitis C [facility] Start: 1989 HIV SCREENING HIV SCREENING [facility] Start: 1986 HIV screening HIV screen [facility] Start: 1983 Adult depression screening assessment DEPRESSION SCREENING [facility] Start: 1983 COVID-19 Vaccine (1) COVID-19 Vaccin e (1) [employer] Phone: Start: 1983 Depression Screen Depression Screen [facility] Start: 04-23-1972 COVID-19 Vaccine (#1) COVID-19 Vacci ne (#1) [facility] Start: 1971 Hepatitis C screening Hepatitis C [facility] [employer] Phone: End: 04-25-2021 Culture, Urine Culture, Urine Microbiology Routine Gross hematuria 1 Occurrences starting 04/25/2021 until 04/25/2021 [employer] Phone: Comment on above: 1 Occurrences starti ng 04/25/2021 until 04/25/2021 Culture, Urine Culture, Urine Microbiology Routine Gross hematuria 04/25/2021 11:40 AM EDT [employer] Phone: Oxygen therapy [[facility] Data Set] Initiate Oxygen Therapy Protocol Respiratory Care Routine Daily until discontinued starting 05/20/2021 [employer] Phone: Comment on above: Daily until disconti nued starting 05/20/2021 Phase I & II - meter ed glucose Phase I & II - metered glucose Point of Care Testing Routine As Needed until discontinued starting 05/20/2021 [employer] Phone: Comment on above: As Needed until disc ontinued starting 05/20/2021 End: 05-20-2021 , Urine , Urine Lab STAT One Time for 1 Occurrences starting 05/20/2021 until 05/20/2021 [employer] Phone: Comment on above: One Time for 1 Occur rences starting 05/20/2021 until 05/20/2021 Payers Date Payer Category Payer Self-pay [id number] 2003 Unknown KARISSA DODGE SS PPO [id number] 2003-Present PPO [id number] 1971 Unknown [id number] 1971 Unknown [id number] 1971 Unknown [id number] 1971 Unknown [id number] 1971 Unknown [id number] 1971 Unknown [id number] 1971 Unknown [id number] 1959 Unknown [id number] Unknown [id number] Unknown [id number] Unknown [id number] Unknown [id number] Social History Date Type Detail Facility Start: 11-07-2014 End: 08-20-2022 Tobacco smoking status NHIS Never smoker [facility] Start: 11-07-2014 End: 08-20-2022 Tobacco use and exposure Never used [facility] Start: 11-07-2014 End: 09-17-2023 Alcohol intake Current drinker of alcohol (finding) [facility] Start: 11-07-2014 Alcohol Comment occasional [facility] Start: 1971 Sex Assigned At Not on file [facility] Start: 04-25-2021 Alcohol Comment social Ness solitario Work Phone: Exposure to SARS-CoV -2 (event) Not sure [facility] Start: 1970 Sex Assigned At Female F [facility] Start: 09-17-2023 History of Social function [facility] Start: 09-17-2023 Tobacco use panel [facility] Clinical Notes 12-28-2014 to 12-25-2022 Edilia Ramirez RN - 05/20/2021 2:50 PM Meseret Sands RN - 05/07/2021 12:50 PM Meseret Sands RN - 05/07/2021 12:48 PM Nancy Hensley RN - 05/06/2021 3:07 PM EDT Note Date & Type Note Facility 12-25-2022 Note DISCHARGE SUMMARY NOTE DATE: 12/26/2022 PRIMARY DIAGNOSES: 1. Enlarged uterus, approximately 15 cm in size. 2. Thickened endometrium. 3. Dysmenorrhea. 4. Abnormal uterine bleeding. 5. Pelvic pain. PROCEDURE: Robotic hysterectomy with bilateral salpingectomy with cystoscopy with mini-laparotomy for removal of specimen. HOSPITAL COURSE: As expected. Please see chart for full details. LABORATORY DATA: Please see chart. COMPLICATIONS: None. DISCHARGE CONDITION: Stable. CONSULTATION: Anesthesia. DISCHARGE INSTRUCTIONS: 1.Diet: Regular. 2.Medications: a.Percocet 5/325 one to two p.o. every 4-6 hours p.r.n. pain. b.Motrin 800 one p.o. every 8 hours p.r.n. pain. 3.Followup in one week. Restrictions: Pelvic rest for 6 weeks. No heavy lifting. May drive when pain free and no longer on narcotics. [facility] 12-25-2022 Note OPERATIVE NOTE OPERATION DATE: 12/26/2022 PROCEDURE: Robotic hysterectomy with bilateral salpingectomy with cystoscopy with mini-laparotomy for removal of specimen. PREOPERATIVE DIAGNOSIS: 1. Menorrhagia. 2. Dysmenorrhea. 3. Thickened endometrium. 4. Significantly enlarged uterus, approximately 15 cm in size. POSTOPERATIVE DIAGNOSIS:: 1. Menorrhagia. 2. Dysmenorrhea. 3. Thickened endometrium. 4. Significantly enlarged uterus, approximately 15 cm in size. ANESTHESIA: General. SURGEON: Jelani Jain D.O. PHLEBOTOMIST SUPERVISOR/INSTRUCTOR: DONG Slaughter URINE OUTPUT: Yellow and clear. BLOOD LOSS: 400 mL. FINDINGS: Significantly enlarged uterus, approximately 15-16 cm in size. Normal appearing ovaries. Normal appearing tubes. PROCEDURE: The patient was taken back to the operating room, where she was prepped and draped in the normal sterile fashion after being placed in the dorsal lithotomy position. Patient's anesthesia was found to be adequate. Surgical timeout was performed using two patient identifiers. SCDs were on and in place. Two grams of Ancef were given prior to the surgery. Sterile Cedillo catheter was inserted. Standard size VCare was secured to the uterine cervix and the surgeon changed gloves. Attention then was turned to the patient's abdomen, where a supraumbilical incision was then made. Two S retractors were used to identify the patient's fascia. The fascia was then tented up using Nanda clamps and the patient's fascia was incised sharply. Patient's abdomen was identified and entered bluntly. The patient had the trocar placed and a pneumoperitoneum was obtained. Approximately 4 liters of CO2 gas was used. The camera was then placed through the trocar. At this time, two robot trocars were placed in the patient's left and right side, two hand widths from the midline, and this was placed under direct visualization. The patient's tube on the right side was tended up and the vessel sealer was then used to come across the mesosalpinx, and this was carried down to the uterine ovarian ligament. The vessel sealer was carried down serially to the broad ligament, to the area of the bladder flap, which was then created anteriorly, and the uterine arteries were skeletonized and sealed using the vessel sealer. The colpotomy was made using the monopolar cautery on cut, and this was carried circumferentially, posteriorly to anteriorly, until the uterus was amputated. The specimen was then removed intact through the vagina, without difficulty. The vagina was then closed using two running V-Loc in a non-lock fashion. The robot was undocked. The abdomen was desufflated. The skin defects were closed using 4-0 Vicryl. Please note, the fascia was closed using 0 Vicryl. Sponge, lap and needle counts were correct x2. Patient was taken to recovery room in stable condition. The patient was awakened by Anesthesia first. Patient tolerated procedure well [facility] 05-20-2021 History of Presen t illness Narrative Discharge Criteria Inpatients must meet Criteria 1 through 7. All other patients are either YES or N/A. If a NO is chosen then Anesthesia or Surgeon must be notified. 1. Minimum 30 minutes after last dose of sedative medication, minimum 120 minutes after last dose of reversal agent. Yes 2. Systolic BP stable within 20 mmHg for 30 minutes & systolic BP between 90 & 180 or within 10 mmHg of baseline. Yes 3. Pulse between 60 and 100 or within 10 bpm of baseline. Yes 4. Spontaneous respiratory rate >/= 10 per minute. Yes 5. SaO2 >/= 95 or >/= baseline. Yes 6. Able to cough and swallow or return to baseline function. Yes 7. Alert and oriented or return to baseline mental status. Yes 8. Demonstrates controlled, coordinated movements, ambulates with steady gait, or return to baseline activity function. Yes 9. Minimal or no pain or nausea, or at a level tolerable and acceptable to patient. Yes 10. Takes and retains oral fluids as allowed. Yes 11. Procedural / perioperative site stable. Minimal or no bleeding. Yes 12. If GI endoscopy procedure, minimal or no abdominal distention or passing flatus. N/A 13. Written discharge instructions and emergency telephone number provided. Yes 14. Accompanied by a responsible adult. Yes Appointment time and instructions for pre-op COVID testing given to patient. Patient instructed on the pre-operative, intra-operative, and post-operative process. Patient's surgical procedure and day of surgery confirmed. Patient instructed on NPO status. Medication instructions reviewed with patient. Pre operative instruction sheet reviewed with patient per PAT phone interview. Attempted PAT phone call; no answer; message left to return PAT phone call. documented in this encounter [employer] Phone: 05-20-2021 Hospital Discharg e Edilia Joseph RN - 05/20/2021 SAME DAY SURGERY DISCHARGE INSTRUCTIONS 1. Do not drive or operate hazardous machinery for 24 hours. 2. Do not make important personal or business decisions for 24 hours. 3. Do not drink alcoholic beverages for 24 hours. 4. Do not smoke tobacco products for 24 hours. 5. Eat light foods (Jell-O, soups, etc....) and drink plenty of fluids (water, Sprite, etc...) up to 8 glasses per day, as you can tolerate. 6. Limit your activities for 24 hours. Do not engage in heavy work until your surgeon gives you permission. 7. Report the following signs or any questions regarding your physical condition to your surgeon immediately: Excessive swelling of, or around the wound area. Redness. Temperature of 100 degrees (F) or above. Excessive pain. 8. Call your surgeon for any questions regarding your surgery. CYSTOSCOPY DISCHARGE INSTRUCTIONS Possible burning during urination and/or blood tinged urine. Drink 6-8 glasses of water for the next day or so. (This helps to flush the urinary tract.) Call Dr. Sanders ([phone]) if you develop: Fever over 100 degrees Prolonged soreness/pain Unusual bleeding/bruising Unable to urinate or if urine is bloody You cannot pass urine 8 hours after the test. You have pain in your belly or your back just below your rib cage. (This is called flank pain.) You have frequent urge to urinate but can pass only small amounts of urine. Call Dr. Sanders office for follow-up appointment ([phone]). documented in this encounter [employer] Phone: 12-28-2014 Miscellaneous Notes Reviewed report and plan. She wants to schedule an appointment to talk to Dr. Malin after barium enema done. Let her know this is ok and can proceed this way. [phone] - Patient is returning call and will be available all day. IMPRESSION: SMALL UTERINE FIBROID. BORDERLINE JUNCTIONAL ZONE FOR ADENOMYOSIS WITHOUT OTHER CHANGES. NO EVIDENCE OF FISTULA. NO FINDINGS OF ENDOMETRIOSIS. Called patient to discuss. Left a message to please call back to discuss. Will need to review lupron and norethindrone 5mg Note to Dr. Malin: I just want to confirm the plan. I am not familiar with add back . Ok to start her on norethindrone 5mg daily now and then get her in for first lurpon injection on her period. [phone] - Patient returning call regarding test results. Norethindrone 5mg qd. is typical add back. Called pt to discuss and arrange for Depo Lupron. LEft a message to return our call. Message from Dr. Malin mri doesn not show anything that is causing her problems Note to Dr. malin. See colorectal note. Plan is Lupron 3.75mg qmo x3 then visit? Other plan? documented in this encounter [facility] Evaluation note Diagnosis Gross hematuria documented in this encounter [employer] Phone: evaluation note* Diagnosis Gross hematuria documented in this encounter [employer] Phone: evaluation note* Diagnosis Renal stone- Primary Calculus of kidney documented in this encounter [employer] Phone: evaluation note* Diagnosis Preop testing- Primary Preoperative examination, unspecified documented in this encounter [employer] Phone: evaluation note* Diagnosis Renal calculus, left Calculus of kidney documented in this encounter [employer] Phone: evaluation noteNo assessment information available [facility] Work Phone: Reason for Referral Status Reason Specialty Diagnoses / Procedures Referre d By Contact Referred To Contact Closed Radiology Diagnoses Gross hematuria Procedures CT UROGRAM Keily Botello, TORPEDO WORKER - WORKERS COMPENSATION EXAMINER [address] [place] [address] Advance Directives No Advanced Directives Records FoundLatest Code Status on File Code Status Date Activated Date Inactivated Comments Full Code 05/20/2021 11:55 AM Latest Code Status on File Code Status Date Activated Date Inactivated Comments Full Code 05/20/2021 11:55 AM 05/20/2021 5:01 PM Advance Directive Response Recorded Date/ Time Advance Directives No August 27, 2017 8:34am Advance Directive Response Recorded Date/ Time Advance Directives No August 27, 2017 7:34am Date Activated Date Inactivated Comments 05/20/2021 11:55 AM 05/20/2021 5:01 PM Chief Complaint and Reason for Visit Chief Complaint ^ Screening Chief Complaint ^ M25.50 M89.9 M79.1 R76.0 R94.5 hand, ankle, knee pain Chief Complaint ^ R70.0 Family History No Family History Records Found Relationship Condition Age at Onset Recorded Date/T keeley father Malignant neoplasm of pancreas Unknown grandparent Malignant neoplasm of breast Unknown Not Specified Steatosis of liver Unknown grandparent Steatosis of liver Unknown Relationship Condition Age at Onset Recorded Date/T keeley father Malignant neoplasm of pancreas Unknown grandparent Malignant neoplasm of breast Unknown mother Steatosis of liver Unknown grandparent Steatosis of liver Unknown Summary Purpose Additional Source Comments Source Comments (unrecognize d section and content) In the event this informatio n is protected by the Federal Confidentiality of Alcohol and Drug Abuse Patient Records regulations: The Federal rules restrict any use of the information to criminally investigate or prosecute any alcohol or drug abuse patient.[facility] Reason for Visit (unrecogniz ed section and content) Reason Onset Date Comments MRI results-Plan Lupron+addback 11/12/2014 Status Reason Specialty Diagnoses / Procedures Referre d By Contact Referred To Contact Closed Radiology Diagnoses Gross hematuria Procedures CT UROGRAM Keily Botello, TORPEDO WORKER - WORKERS COMPENSATION EXAMINER [address] [place] [address] Status Reason Specialty Diagnoses / Procedures Re ferred By Contact Referred To Contact Diagnoses Renal calculus, left Hematuria LEFT RENAL CALCULUS, HEMATURIA Procedures VT FRAGMENT KIDNEY STONE/ [facility] [place] OFFICE/OUTPT VISIT,PROCEDURE ONLY ESWL EXTRACORPOREAL SHOCK WAVE LITHOTRIPSY CYSTOSCOPY Fili Sanders MD [address], [address] [place] [address] [facility] Scheduled Active and Recently Administ ered Medications (unrecognized section and content) Medication Order 05/18/2021 05/19/2021 05/20/2021 acetaminophen (TYLENOL) tablet 650 mg (COMPLETED) 650 mg, Oral, ONCE, On Wed05/20/21 at 1215, For 1 dose, Maximum dose of acetaminophen is 4000 mg from all sources in 24 hours., Pre-op (day of surgery) 1231 (Given - Provid er: Leslie Tamez RN) ciprofloxacin (CIPRO) IVPB 400 mg (COMPLETED) 400 mg, Intravenous, PROPERTY TECHNICIAN TO O.R., 1 dose, On Wed05/20/21 at 1215, Administer within 1 hour prior to incision, Pre-op (day of surgery) 1311 (New Bag - Prov ider: Leslie Luke RN)1411 (Due: Stopped - Provider: Leslie Luke RN) dimenhyDRINATE (DRAMAMINE) tablet 50 mg (COMPLETED) 50 mg, Oral, ONCE, On Wed05/20/21 at 1215, For 1 dose, Pre-op (day of surgery) 1231 (Given - Provid er: Leslie Tamez RN) sodium chloride flush 0.9 % injection 5-40 mL 5-40 mL, Intravenous, EVERY 12 HOURS SCHEDULED (2 times per day), First dose on Wed05/20/21 at 2100, For Line Patency: Peripheral IV = 5 mL; Midline or Central Line = 10 mL/lumen. If following IV push medication, administer flush at same rate as the IV push. Flush volume is determined by type of infusion therapy being given. For non-viscous solutions use: Peripheral IV = 5 mL Midline or Central Line = 10 mL/lumen For viscous solutions (i.e. blood components, parenteral nutrition, contrast media, or after obtaining blood sample) use: Peripheral IV = 10 mL Midline or Central Line = 20 mL/lumen, Pre-op (day of surgery) 2100 (Due) Continuous Medication Order 05/18/2021 05/19/2021 05/20/2021 lactated ringers infusion Intravenous, at 100 mL/hr, CONTINUOUS, Starting on Wed05/20/21 at 1215, Pre-op (day of surgery) 1231 (New Bag - Prov ider: Leslie Tamez, JAZMYNE)1313 (NoRateChange - Provider: Fili Sanders MD)1359 (Anesthesia Volume Adjustment - Provider: Javi Meredith APRN - [employer]LE[employer] INSTRUCTOR)1448 (Stopped - Provider: Edilia Ramirez, JAZMYNE) lactated ringers infusion Intravenous, at 125 mL/hr, CONTINUOUS, Starting on Wed05/20/21 at 1215, Pre-op (day of surgery) 1215 (Due) PRN Medication Order 05/18/2021 05/19/2021 05/20/2021 0.9 % sodium chloride infusion 25 mL, Intravenous, at 100 mL/hr, PRN, If patient receiving piggyback infusions without ordered maintenance IV fluids or with frequent/long duration piggyback infusions, Starting on Wed05/20/21 at 1155, Administer at the same rate as the piggyback being infused., Pre-op (day of surgery) fentaNYL (SUBLIMAZE) injection 50 mcg 50 mcg, Intravenous, EVERY 5 MIN PRN, Pain Moderate (4-6), Pain Severe (7-10), Starting on Wed05/20/21 at 1310, For 4 doses, Phase I - Initial therapy for severe pain., PACU only HYDROcodone-acetaminophen (NORCO) 5-325 MG per tablet 1 tablet 1 tablet, Oral, ONCE PRN, Pain Moderate (4-6), Pain Severe (7-10), Starting on Wed05/20/21 at 1310, For 1 dose, PHASE II, PACU only metoclopramide (REGLAN) injection 10 mg 10 mg, Intravenous, ONCE PRN, Nausea, Starting on Wed05/20/21 at 1310, For 1 dose, Initial antiemetic therapy., PACU only promethazine (PHENERGAN) injection 6.25 mg 6.25 mg, Intramuscular, ONCE PRN, Nausea, Starting on Wed05/20/21 at 1310, For 1 dose, Recommended route is IM. Caution if used IV:Check IV site for infiltrate prior to and during administration. Secondary antiemetic therapy. For IV administration, dilute to 10ml with normal saline. Must be administered over at least 10 minutes., PACU only sodium chloride flush 0.9 % injection 5-40 mL 5-40 mL, Intravenous, PRN, Line Care, Starting on Wed05/20/21 at 1155, For Line Patency: Peripheral IV = 5 mL; Midline or Central Line = 10 mL/lumen. If following IV push medication, administer flush at same rate as the IV push. Flush volume is determined by type of infusion therapy being given. For non-viscous solutions use: Peripheral IV = 5 mL Midline or Central Line = 10 mL/lumen For viscous solutions (i.e. blood components, parenteral nutrition, contrast media, or after obtaining blood sample) use: Peripheral IV = 10 mL Midline or Central Line = 20 mL/lumen, Pre-op (day of surgery) Care Teams (unrecognized sec tion and content) Internal Communications Intern Relationship Specialty Start Date End Date Deyvi Cabello DO [address] [place] [address] PCP - General Family Medicine 04/25/21 Team Status: Active Member Role Status Nicole Cabello DO Primary Care Provider Active Team Status: Active Member Role Status Nicole Mcmanus MD Attending Provider Active Team Status: Inactive Member Role Status Nicole Cabello DO Primary Care Provider Active Referral Self Attending Provider Active Team Status: Inactive Member Role Status Nicole Cabello DO Primary Care Provider Active Laci Larsen MD Attending Provider Active Team Status: Active Member Role Status Nicole Mcmanus MD Attending Provider Active Star t: November 30, 2004 Team Status: Inactive Member Role Status Nicole Cabello DO Primary Care Provider Active Start: April 07, 2024 End: April 07, 2024 Jelani Jain Attending Provider, Referring Provider Active Start: April 07, 2024 End: April 07, 2024 Team Status: Active Member Role Status Nicole Cabello DO Primary Care Provider Active Start: July 18, 2024 Spike Atkins DO Attending Provider Active Sta rt: July 18, 2024 Team Status: Inactive Member Role Status Nicole Cabello DO Primary Care Provider Active Start: August 24, 2024 End: August 24, 2024 Laci Larsen MD Attending Provider Active St art: August 24, 2024 End: August 24, 2024 Internal Communications Intern Relationship Specialty Start Date End Date Deyvi CabelloDO [address] [facility] [place] [address] PCP - General Family Medicine 04/25/21 Goals (unrecognized section and content) Goals may be documented in a n alternate sectionGoals may be documented in an alternate sectionGoals may be documented in an alternate sectionGoals may be documented in an alternate section INFORMATION SOURCE (unrecogn ized section and content) DATE CREATED AUTHOR 04/30/2023 [facility] DATE CREATED AUTHOR AUTHOR'S ORGANIZ ATION 02/11/2024 [facility] EPIC DATE CREATED AUTHOR AUTHOR'S ORGANIZ ATION 09/05/2024 [facility] DATE CREATED AUTHOR AUTHOR'S ORGANIZ ATION 09/06/2024 [facility] FOR RECORDS PERTAINING TO PATIENTS WHO ARE OR HAVE BEEN ENROLLED IN A CHEMICAL DEPENDENCY/SUBSTANCEABUSE PROGRAM, SOME INFORMATION MAY BE OMITTED. This clinical summary was aggregated from multiple sources. Caution should be exercised in using it in the provision of clinical care. This summary normalizes information from multiple sources, and as a consequence, information in this document may materially change the coding, format and clinical context of patient data. In addition, data may be omitted in some cases. CLINICAL DECISIONS SHOULD BE BASED ON THE PRIMARY CLINICAL RECORDS. [employer] [facility]. provides no warranty or guarantee of the accuracy or completeness of information in this document.
[2024-12-05 17:05] LABS: Bacteria Urine TRACE #/HPF (NONE SEEN); Calcium Oxalate Crystals Urine RARE; Crystals Seen? Seen #/HPF (None Seen); Mucus Urine TRACE (NONE SEEN); RBC Urine 0-2 #/HPF (0-2); Squamous Epithelial Cell Urine MODERATE #/LPF (NONE/RARE); Starch Urine RARE; Urine Culture Indicated ALREADY ORDERED
[2024-12-05 17:06] LABS: Cast Seen? NONE SEEN #/LPF (NONE SEEN)
== END 2024-12-05 16:41 | disposition home or self-care (01) ==
LOC: LAB 16:42
PROVIDERS: PCP Family Medicine
DX: R30.0 Dysuria (principal)
CPT/HCPCS: 81001; 87086

== ENCOUNTER 2025-02-15 15:36 | Outpatient (REF) | payer BC, SELFPAY ==
[2025-02-22 12:09] LABS: Age Gdln ACOG Testing Note (.); HPV Aptima Negative (Negative); IGP, Aptima HPV, rfx 16/18,45 Note (.)
== END 2025-02-15 15:37 | disposition home or self-care (01) ==
LOC: LAB 15:36
PROVIDERS: PCP Family Medicine; Visit Provider Obstetrics & Gynecology
DX: Z01.419 Encounter for gynecological examination (general) (routine) without abnormal findings (principal)
CPT/HCPCS: 87624; 88175